=== PATIENT | male | born 1980 | race Caucasian/White ===

== ENCOUNTER 2019-06-19 12:55 | Outpatient (CLI) | payer OTHER | END 2019-06-19 12:56 | disposition EMS.NT | LOC: EMS 12:55 | PROVIDERS: ATTEND Surgery | DX: S00.31XA Abrasion of nose, initial encounter (principal); V89.2XXA Person injured in unspecified motor-vehicle accident, traffic, initial encounter; Y92.414 Local residential or business street as the place of occurrence of the external cause ==

== ENCOUNTER 2020-10-11 09:31 | Outpatient (CLI) | payer MEDICAID ==
[2020-10-11 17:54] LABS: CHOL/HDL RATIO 3.3 (<5.0); CHOLESTEROL 164 mg/dL; HDL CHOLESTEROL 50 mg/dL; LDL CHOLESTEROL,CALCULATED 96 mg/dL; LDL/HDL RATIO 1.9 (<3.6); TRIGLYCERIDES 90 mg/dL; VLDL CHOLESTEROL 18 mg/dL
== END 2020-10-11 09:32 | disposition home or self-care (01) ==
LOC: LAB.N 09:31
PROVIDERS: ATTEND Physician Assistant
DX: Z00.00 Encounter for general adult medical examination without abnormal findings (principal); Z79.899 Other long term (current) drug therapy; F11.11 Opioid abuse, in remission
CPT/HCPCS: 36415; 80061; 83721

== ENCOUNTER 2021-02-28 08:00 | Outpatient (CLI) | payer MEDICAID | END 2021-02-28 23:59 | disposition home or self-care (01) | LOC: LAB 08:00 | PROVIDERS: ATTEND Family Medicine | DX: T14.8XXA Other injury of unspecified body region, initial encounter (principal) | CPT/HCPCS: 87070; 87181; 87205 ==

== ENCOUNTER 2022-10-11 09:27 | Emergency (ER) | payer MEDICAID ==
[2022-10-11 09:48] VITALS: BP 142/97
--- NOTE | 2022-10-11 09:56 | ED Physician Documentation ---
History of Present Illness - Stated complaint Stated Complaint: LFT FING INJ - Chief complaint Chief Complaint: Laceration - Additonal information Additional information: Patient 41-year-old male, [id number] presenting with left fourth finger injury. Clipped the nail and distal part of his left fourth finger with pus immediately prior to arrival. Denies previous injuries to the same hand. Reports tetanus up-to-date. Review of Systems Constitutional: denies: Fever Eyes: denies: Loss of vision Ears: denies: Loss of hearing Nose: denies: Rhinorrhea / runny nose Throat: denies: Dental pain / toothache Respiratory: denies: Dyspnea GI: denies: Abdominal Pain, Nausea, Vomiting PD PAST MEDICAL HISTORY - Present Medications Home Medications: Ambulatory Orders Medication Instructions Recorded Confirmed Ibuprofen [Motrin] 800 mg PO Q8H PRN #30 tablet 10/11/22 cephALEXin [Keflex] 500 mg PO Q6H #20 cap 10/11/22 - Allergies Allergies/Adverse Reactions: Allergies Allergy/AdvReac Type Severity Reaction Status Date / Time No Known Drug Allergies Allergy Verified 10/11/22 09:44 PD ED PE NORMAL - Vitals Vital signs reviewed: Yes (Tachycardic) - General General: Alert and oriented X 3 - HEENT HEENT: Atraumatic - Extremities Extremities: Other (Linear laceration involving the pad and superior aspect of the left fifth distal phalanx.Flexor superficialis and profundus intact. Full range with extension. Sensation grossly intact.) Results - Vitals Vitals: Oxygen O2 Source Room air Procedures - Laceration (location) Finger left Length in cm: 1.5 Wound type: Linear, Exposure of bone Neurovascular status: Sensory intact, Motor intact, Vascular intact Tendon involvement: Tendon intact Anesthesia: Lidocaine 1% Wound preparation: Chlorhexadine Skin layer closure: Nylon (4.0), Sutures - enter # (8) Other: Patient tolerated well PD Medical Decision Making - ED course Complexity details: reviewed results, re-evaluated patient, considered differential, d/w patient ED course: Patient is a 41-year-old male presenting to the emergency department with injury to his left fourth finger. This occurred while he was using a band saw without protective work gloves earlier today. X-ray demonstrates distal tuft fracture. He was given 2 g Ancef for antibiotic prophylaxis. Received a digital block here in the emergency department after neurovascular status was confirmed. No indications tendon injury. Wound was extensively cleaned. For antibiotic prophylaxis. Received a digital block here in the emergency department after neurovascular status was confirmed. No indications tendon injury. Wound was extensively cleaned. Nail was removed with retention of nailbed as much is as possible and a loose primary closure was placed. Discharged with medication for pain control as well as an ongoing course of oral antibiotic and referral to local area hand services. Encouraged careful follow-up and return to the emergency department for new or worsening symptoms. Departure - Departure Disposition: 01 Home, Self Care Clinical Impression: Open fracture of tuft of distal phalanx of finger Instructions: ED Fx Finger Open Follow-Up: Isiah Leblanc MD [Physician No Access] - Prescriptions: cephALEXin [Keflex] 500 mg PO Q6H #20 cap Ibuprofen [Motrin] 800 mg PO Q8H PRN #30 tablet PRN Reason: PAIN &/OR FEVER Comments: Thank you for allowing us to care for you today at [facility]. Today in the emergency department you were diagnosed with an open tuft fracture of your left fourth finger. You are given a dose of IV antibiotics here in the emergency department. I will be discharging with a course of oral antibiotics to take as well. You also received 9 stitches to this injury. The stitches will need to be removed in 7 to 10 days. I do recommend careful follow-up with a hand specialist. As we discussed have included contact information for Dr. Obey Leblanc, an orthopedic surgeon who specializes in hand and practices in [place]. Please call her office later today in order to arrange follow-up. If there are difficulties arranging follow-up I do recommend contacting your primary care doctor to ask for referral. In addition there is a hand clinic available at [facility] which can be reached at [phone] Please continue take your previously prescribed Vicodin for pain control. I also recommend regular use of ibuprofen, ice packs and elevation of your injured extremity to decrease swelling and thereby decrease pain. If it anytime you have new or worsening symptoms please not hesitate to return. Discharge Date/Time: 10/11/22 13:01
[2022-10-11] MEDS ORDERED: lidocaine 1% 20 ML MDV SUBQ ONE (10:04)
--- NOTE | 2022-10-11 10:12 | XRAY Report ---
PROCEDURE: Finger(s) LT INDICATIONS: left 4th finger laceration TECHNIQUE: AP hand, 2 views of the fourth finger(s) acquired. COMPARISON: None. FINDINGS: Bones: There is mild fragmentation of the fourth distal phalanx tuft. Soft tissues: No suspicious soft tissue calcifications or masses. Soft tissue defect to the dorsal , distal fourth phalanx. IMPRESSION: Mild fragmentation of the fourth distal phalanx tuft, with associated soft tissue defect. Reviewed by: Mejia Moran on 10/11/2022 10:10 AM PDT Approved by: Mejia Moran on 10/11/2022 10:10 AM PDT Station ID: [id number]
[2022-10-11] MEDS ORDERED: AMPICILLIN IV STA (10:32)
[2022-10-11] MEDS ORDERED: SULBACTAM IV STA (10:32)
[2022-10-11] MEDS ORDERED: SODIUM CHLORIDE 0.9% IV STA (10:32)
[2022-10-11] MEDS ORDERED: AMPICILLIN/SULBACTAM 3 GM in SODIUM CHLORIDE 0.9% MINIBAG 100 ML IV STA (10:38)
[2022-10-11] MEDS ORDERED: ceFAZolin 2 GM in SODIUM CHLORIDE 0.9% MINIBAG 100 ML IV STA (10:45)
[2022-10-11] MEDS ORDERED: BACITRACIN ZINC OINT 1 PACKET TOP STA (12:14)
== END 2022-10-11 13:01 | disposition home or self-care (01) ==
LOC: ED 09:27
DX: S62.635B Displaced fracture of distal phalanx of left ring finger, initial encounter for open fracture (principal); X58.XXXA Exposure to other specified factors, initial encounter
CPT/HCPCS: 13131

== ENCOUNTER 2023-05-16 21:19 | Outpatient (CLI) | payer MEDICAID | END 2023-05-16 23:59 | disposition critical access hospital (66) | LOC: EMS 21:19 | DX: R56.9 Unspecified convulsions (principal); F10.10 Alcohol abuse, uncomplicated | CPT/HCPCS: A0425; A0429; A0999 ==

== ENCOUNTER 2023-05-16 21:40 | Inpatient (IN) | payer OTHER, MEDICAID ==
[2023-05-16] MEDS ORDERED: THIAMINE INJ 100 MG, MAGNESIUM SULFATE 2 GM, MULTIVITAMIN 10 ML, FOLIC ACID INJ 1 MG in... IV STA ×5 (22:30)
[2023-05-16] MEDS ORDERED: LORazepam 2 MG/ML VIAL IVP STA ×2 (22:30→22:44)
--- NOTE | 2023-05-16 22:32 | ED Physician Documentation ---
History of Present Illness - Stated complaint Stated Complaint: SZ, ETOH - Chief complaint Chief Complaint: Neuro - History obtained from History obtained from: Patient, EMS - History of Present Illness Timing: Today Pain level max: 0 Pain level now: 0 - Additonal information Additional information: Patient is a 42-year-old male history of alcoholism who presents to the emergency department stating he normally drinks about 1/5 of vodka per day. He has been trying to cut back to half of 1/5 of vodka per day. Last drink was about 4 hours prior to arrival. Reportedly had a 15 to 20-second seizure at home. He did fall and strike his head. Witnessed by his . He states he has never had a seizure before. He has noticed that his skin and eyes have been turning yellow over the past several weeks. He has a primary care provider at [facility]. He states he has never had jaundice before. No history of varices. Denies any other drug use. No fevers. No chills. No recent travel. Review of Systems Constitutional: denies: Fever, Chills Nose: denies: Rhinorrhea / runny nose, Congestion Throat: denies: Sore throat Cardiac: denies: Chest pain / pressure Respiratory: denies: Cough GI: denies: Nausea, Vomiting, Diarrhea : denies: Dysuria, Frequency, Hesitancy Skin: denies: Rash Musculoskeletal: denies: Neck pain, Back pain Neurologic: reports: Seizure, Head injury. denies: Focal weakness, Numbness, Confused, Altered mental status PD PAST MEDICAL HISTORY - Past Medical History Past Medical History: Yes Other Past Medical History: Peripheral neuropathy - Past Surgical History Past Surgical History: No - Present Medications Home Medications: Ambulatory Orders Medication Instructions Recorded Confirmed Ibuprofen [Motrin] 800 mg PO Q8H PRN #30 tablet 10/11/22 cephALEXin [Keflex] 500 mg PO Q6H #20 cap 10/11/22 - Allergies Allergies/Adverse Reactions: Allergies Allergy/AdvReac Type Severity Reaction Status Date / Time No Known Drug Allergies Allergy Verified 10/11/22 09:44 - Living Situation Living Arrangement: reports: At home - Social History Does the pt drink ETOH?: Yes ETOH Use: Liquor - Family History Family history: reports: Non contributory PD ED PE NORMAL - Vitals Vital signs reviewed: Yes - General General: Alert and oriented X 3, No acute distress, Well developed/nourished, Other (Obviously jaundiced) - HEENT HEENT: PERRL (Positive scleral icterus), EOMI, Moist mucous membranes, Pharynx benign - Neck Neck: Supple, no meningeal sign - Cardiac Cardiac: RRR - Respiratory Respiratory: No respiratory distress, Clear bilaterally - Abdomen Abdomen: Soft, Non tender, Non distended - Back Back: No spinal TTP - Derm Derm: Warm and dry - Extremities Extremities: No edema, No calf tenderness / cord - Neuro Neuro: Alert and oriented X 3 - Psych Psych: Normal mood, Normal affect Results - Vitals Vitals: Vital Signs - 24 hr 05/16/23 21:52 Temperature 36.3 C L Heart Rate 125 H Respiratory 28 H Rate Blood Pressure 143/102 H O2 Saturation 98 Oxygen O2 Source Room air - Labs Labs: Laboratory Tests 05/16/23 05/16/23 05/16/23 22:16 22:16 22:16 WBC 7.4 RBC 3.66 L Hgb 13.8 L Hct 37.5 L MCV 102.5 H MCH 37.7 H MCHC 36.8 H RDW 14.9 Plt Count 107 L MPV 12.2 H Neut # (Auto) 5.8 Lymph # (Auto) 0.7 L [place] # (Auto) 0.8 Eos # (Auto) 0.0 Baso # (Auto) 0.1 Absolute Nucleated RBC 0.03 Nucleated RBC % 0.4 PT 13.2 H INR 1.2 APTT 28.7 Sodium 127 L Potassium 2.7 L Chloride 91 L Carbon Dioxide 18 L Anion Gap 18.0 H BUN 9 Creatinine 0.8 Estimated GFR (MDRD) 106 Glucose 141 H Calcium 9.4 Phosphorus Magnesium Total Bilirubin 21.3 H AST 454 H ALT 147 H Alkaline Phosphatase 273 H Total Protein 6.6 Albumin 3.5 Globulin 3.1 Albumin/Globulin Ratio 1.1 Lipase 471 H Ethyl Alcohol < 10.0 05/16/23 22:16 WBC RBC Hgb Hct MCV MCH MCHC RDW Plt Count MPV Neut # (Auto) Lymph # (Auto) [place] # (Auto) Eos # (Auto) Baso # (Auto) Absolute Nucleated RBC Nucleated RBC % PT INR APTT Sodium Potassium Chloride Carbon Dioxide Anion Gap BUN Creatinine Estimated GFR (MDRD) Glucose Calcium Phosphorus 1.4 L Magnesium 1.8 Total Bilirubin AST ALT Alkaline Phosphatase Total Protein Albumin Globulin Albumin/Globulin Ratio Lipase Ethyl Alcohol PD Medical Decision Making - ED course Complexity details: reviewed results, re-evaluated patient, considered differential, d/w patient ED course: Patient wtih presumed alcohol withdrawal seizure. Given phenobarbital and IV ativan. Banana bag ordered. Abd/pelvis CT and head CT ordered. labs ordered. Patient signed out to Dr. Loco for further care. See his note for further care. Departure - Departure Clinical Impression: Hyponatremia, Hyperbilirubinemia, Seizure Alcohol withdrawal Qualifiers: Complication of substance-induced condition: uncomplicated Qualified Code(s): F10.930 - Alcohol use, unspecified with withdrawal, uncomplicated Condition: Stable Forms: PCP List
[2023-05-16 22:33] LABS: BASOPHILS # (AUTO) 0.1 10^3/uL (0.0-0.1); BASOPHILS % (AUTO) 0.7 %; EOSINOPHILS % (AUTO) 0.1 %; HCT - HEMATOCRIT 37.5 % (42.0-52.0); HGB - HEMOGLOBIN 13.8 g/dL (14.0-18.0); LYMPHOCYTES # (AUTO) 0.7 10^3/uL (1.5-3.5); MEAN CORPUSCULAR HEMOGLOBIN 37.7 pg (27.0-31.0); MEAN CORPUSCULAR HGB CONC 36.8 g/dL (32.0-36.0); MEAN CORPUSCULAR VOLUME 102.5 fL (80.0-94.0); MEAN PLATELET VOLUME 12.2 fL (7.4-11.4); MONOCYTES # (AUTO) 0.8 10^3/uL (0.0-1.0); MONOCYTES % (AUTO) 10.4 %; NEUTROPHILS # (AUTO) 5.8 10^3/uL (1.5-6.6); NEUTROPHILS % (AUTO) 77.6 %; NRBC ABSOLUTE COUNT (AUTO) 0.03 x10^3/uL; NUCLEATED RED BLOOD CELLS AUTO 0.4 /100WBC; PLT - PLATELET COUNT 107 10^3/uL (130-450); RED BLOOD COUNT 3.66 10^6/uL (4.70-6.10); RED CELL DISTRIBUTION WIDTH 14.9 % (12.0-15.0); WHITE BLOOD COUNT 7.4 x10^3/uL (4.8-10.8)
[2023-05-16 22:35] LABS: PARTIAL THROMBOPLASTIN TIME 28.7 secs (24.9-33.3)
[2023-05-16] MEDS ORDERED: oxyCODONE/ACET 5/325 Prepack 4 PO STA (22:38)
[2023-05-16 22:39] LABS: INR 1.2 (0.8-1.2); PT - PROTHROMBIN TIME 13.2 secs (9.9-12.6)
[2023-05-16 22:43] LABS: ALBUMIN 3.5 g/dL (3.2-5.5); ETOH - ETHANOL < 10.0 mg/dL; LIPASE 471 U/L (11-82)
[2023-05-16] MEDS ORDERED: PHENobarbital 65 MG/ML VIAL IM STA (22:44)
[2023-05-16] MEDS ORDERED: iohexoL-300 100 ML VIAL ONE (22:48)
[2023-05-16 22:50] LABS: ALBUMIN/GLOBULIN RATIO 1.1 (1.0-2.2); ALKALINE PHOSPHATASE 273 IU/L (42-121); ALT ALANINE AMINOTRANSFERASE 147 IU/L (10-60); AST ASPARTATE AMINOTRANSFERASE 454 IU/L (10-42); BILIRUBIN,TOTAL 21.3 mg/dL (0.2-1.0); BUN - BLOOD UREA NITROGEN 9 mg/dL (6-20); CALCIUM 9.4 mg/dL (8.5-10.3); CARBON DIOXIDE - CO2 18 mmol/L (21-32); CHLORIDE 91 mmol/L (101-111); CREATININE 0.8 mg/dL (0.6-1.3); GFR - MDRD 106 (>89); GLUCOSE 141 mg/dL (74-104); POTASSIUM 2.7 mmol/L (3.5-4.5); SODIUM 127 mmol/L (135-145); TOTAL PROTEIN 6.6 g/dL (6.4-8.9)
[2023-05-16 22:57] LABS: MAGNESIUM 1.8 mg/dL (1.7-2.3); PHOSPHORUS 1.4 mg/dL (2.5-5.0)
[2023-05-16] MEDS ORDERED: THIAMINE 100 MG/1 ML 2 ML MDV IM ONE (23:00)
[2023-05-16] MEDS ORDERED: FOLIC ACID 5 MG/1 ML 10ML MDV ONE (23:09)
[2023-05-16] MEDS ORDERED: THIAMINE 100 MG/1 ML 2 ML MDV ONE (23:09)
[2023-05-16] MEDS ORDERED: MAGNESIUM SULFATE 1 GM/2 ML VIAL ONE (23:09)
[2023-05-16] MEDS ORDERED: MAGNESIUM SULFATE 2 GRAM 2 GM/50 ML BAG IV ONE (23:19)
[2023-05-16] MEDS ORDERED: SODIUM CHLORIDE 0.9% 1,000 ML IV STA (23:19)
[2023-05-16] MEDS ORDERED: THIAMINE INJ 100 MG, FOLIC ACID INJ 1 MG in SODIUM CHLORIDE 0.9% 1,000 ML IV STA (23:19)
--- NOTE | 2023-05-17 00:37 | CT Report ---
PROCEDURE: Head WO INDICATIONS: fall, head injury TECHNIQUE: Noncontrast 4.5 mm thick angled axial sections acquired from the foramen magnum to the vertex. For r adiation dose reduction, the following was used: automated exposure control, adjustment of mA and/or kV according to patient size. COMPARISON: None. FINDINGS: Image quality: Excellent. CSF spaces: Basal cisterns are patent. No extra-axial fluid collections. Ventricles are normal in size and shape. Brain: No midline shift. No intracranial masses or hemorrhage. [place]-white matter interface is norm al. Skull and face: Calvarium and visualized facial bones are intact, without suspicious lesions. Small sclerotic focus at the left orbital rim. Sinuses: Visualized sinuses and mastoids are clear. IMPRESSION: No acute intracranial pathology. Reviewed by: Robert Salmeron MD on 05/17/2023 12:36 AM [facility] Approved by: Robert Salmeron MD on 05/17/2023 12:36 AM [facility] Station ID: [id number]
[2023-05-17] MEDS ORDERED: LORazepam 2 MG/ML VIAL IVP STA ×2 (00:56→04:47)
[2023-05-17] MEDS ORDERED: iohexoL-300 100 ML VIAL IVP ONE (01:45)
--- NOTE | 2023-05-17 02:16 | CT Report ---
PROCEDURE: Abdomen/Pelvis W INDICATIONS: jaundice CONTRAST: 100 ML OMNI 300 TECHNIQUE: After the administration of intravenous contrast, a CT scan of the abdomen and pelvis was performed. Images were recorded and evaluated at appropriate window settings. Reformats: coronal and sagittal. F or radiation dose reduction, the following was used: automated exposure control, adjustment of mA and /or kV according to patient size. COMPARISON: None. FINDINGS: Image quality: Fair. Lung bases and heart: Unremarkable. Liver: No solid mass. Hepatic steatosis. Measures 25.7 cm in length. Gallbladder and biliary tree: Gallbladder is likely decompressed. No calcified gallstones. No biliary ductal dilatation appreciated. Spleen: No splenomegaly. Pancreas: No pancreatic ductal dilation. No peripancreatic fluid collection. Adrenals: No adrenal nodule. Kidneys and ureters: No hydronephrosis. No renal cystic lesion which requires follow up. No solid mas s. Bowel and peritoneum: No bowel distension. No pathologic free fluid. The appendix is not dilated. No significant diverticulosis. Lymph nodes: No central or retroperitoneal adenopathy. Vessels: No infrarenal aortic aneurysm. Mild noncalcified plaque in the aorta. PELVIS Reproductive organs: Unremarkable. Bladder: No abnormal wall thickening, accounting for underdistention. Pelvic lymph nodes: No pelvic adenopathy by size criteria. Bones: No aggressive osseous abnormality. 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 Small vertebral body osteophyte s. No bridging syndesmophytes. Other: No significant ventral or inguinal hernia. IMPRESSION: 1. No acute inflammatory process is identified. No free fluid. 2. The gallbladder appears decompressed. No biliary ductal dilatation is seen. 3. Hepatic steatosis. Hepatomegaly. 4. 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 Reviewed by: Robert Salmeron MD on 05/17/2023 2:15 AM [facility] Approved by: Robert Salmeron MD on 05/17/2023 2:15 AM PST Station ID: [id number]
--- NOTE | 2023-05-17 02:45 | ED Physician Documentation ---
ED Addendum - Addendum Addendum: 05/17/23 08:26 I received signout/turnover of care from Dr. Martin; please see his note for complete history and physical. In brief, this patient has alcoholism and presents due to seizures which are likely due to alcohol withdrawal. Patient's , in the ED at bedside, says the patient recently was trying to taper his alcohol intake. His says they have also noted that his skin has been turning yellow in his eyes, as well, over the past few days. His says that he has had jaundice skin before, attributed to his alcoholism, but that with tapering the alcohol, he had resolution of the jaundice. Patient apparently had a seizure at home, followed by a seizure shortly after ED arrival. Additionally, while he was undergoing CT scans tonight, he reportedly had 2 more seizures witnessed by the ED RN. On my overnight shift, there was no seizure activity but he did require 2 mg IV lorazepam with a repeat dose due to generalized tremulous that was gradually worsening as previous doses of lorazepam were wearing off. He has significantly abnormal LFTs, most notably significant hyperbilirubinemia. There are no abnormalities on the CT head, and CT of the abdomen pelvis demonstrate hepatomegaly and hepatic steatosis but otherwise no contributory/concerning findings. I discussed this case with Dr. Rojas (on-call GI at [facility]). He recommends methylprednisolone 40mg QD x [address] Rojas says this can be given PO or IV. I have ordered 40mg IV methylprednisolone, given repeated seizures representing an aspiration risk. The methylprednisolone is for borderline Maddrey's score. Using the initial values (PT, control, and bilirubin), score is 31.4 (cutoff for good/bad prognosis and recommendation against/for methylprednisolone is 32). However, AM bilirubin has increased and now the Maddrey score is 32.5. Dr. Rojas says patient would not benefit from transfer at this time; he says there would be no difference in treatment at [facility] compared to transfer to [facility] or other higher level of care. As there are no beds available at [facility] at this time, he is held in the ED and care is signed out to oncoming ED physician (Dr. Daniel) at the end of my shift pending bed availability.
[2023-05-17] MEDS ORDERED: SODIUM CHLORIDE 0.9% 1,000 ML IV STA (02:56)
[2023-05-17] MEDS ORDERED: methylPREDNISolone SUCCINATE 40 MG/ML VIAL IVP STA (05:40)
[2023-05-17] MEDS ORDERED: POTASSIUM PHOSPHATE 21 MMOL in SODIUM CHLORIDE 0.9% 250 ML IV ONE (07:29)
[2023-05-17 08:01] LABS: ALBUMIN 3.2 g/dL (3.2-5.5)
[2023-05-17 08:06] LABS: ALBUMIN/GLOBULIN RATIO 1.3 (1.0-2.2); BILIRUBIN,TOTAL 22.4 mg/dL (0.2-1.0); CALCIUM 8.2 mg/dL (8.5-10.3); CREATININE 0.9 mg/dL (0.6-1.3); POTASSIUM 4.5 mmol/L (3.5-4.5); TOTAL PROTEIN 5.7 g/dL (6.4-8.9)
[2023-05-17 08:23] LABS: BILIRUBIN,URINE LARGE (NEGATIVE); GLUCOSE, URINE (UA) NEGATIVE (NEGATIVE); KETONES,URINE (UA) NEGATIVE (NEGATIVE); LEUKOCYTE ESTERASE, URINE NEGATIVE (NEGATIVE); NITRITE,URINE NEGATIVE (NEGATIVE); OCCULT BLOOD,URINE NEGATIVE (NEGATIVE); PROTEIN,URINE TRACE mg/dL (NEGATIVE); UROBILINOGEN,URINE 4 E.U./dL (NORMAL)
[2023-05-17 08:33] LABS: CLARITY,URINE CLEAR (CLEAR)
[2023-05-17] MEDS ORDERED: PHENobarbital 65 MG/ML VIAL IV STA (10:31)
[2023-05-17] MEDS ORDERED: IBUPROFEN 400 MG TABLET PO PRN (12:08)
--- NOTE | 2023-05-17 13:02 | HISTORY & PHYSICAL EXAMINATION ---
Chief Complaint - Chief Complaint Chief Complaint: Seizure History of Present Illness - Admitted From Admitted From:: Emergency Room - History Obtained From Records Reviewed: Clinic History obtained from: Patient and patient's mother Exam Limitations: None - History of Present Illness HPI Comment/Other: Jim is a 42 year old male with a history of alcoholism who presents to the ED after having a witnessed seizure at home then falling/hitting his head. The seizure lasted ~ 20 seconds. Last drink was 4 hours prior to arrival at ED. Patient drinks about 1/5 vodka a day and he has been trying to cut back the last few days. He has noticed that his skin and eyes have been turning yellow over the past few weeks. Patient's reports patient has had jaundiced skin before due to alcoholism but it resolved with reduction of alcohol consumption. While in the ER, patient had several seizures, two of which were witnssed by ED RN. He had a head CT that showed no acute intracranial pathology. CT of the abd/pelvis showed a decompressed gallbladder, no billiary duct dilation, hepatic stenosis and hepatomegaly, and ankylosis at SI joints. He required 2 mg IV lorazepam for generalized tremulous that increased as the previous dose of lorazepam wore off. orthopedically impaired teacher GI provider Dr. Rojas ([facility]) recommended starting methylprednisolone 40mg QD x 30 days for borderline Maddrey's score and that there was no need for transfer. Initial Maddrey's score was 31.4 (cutoff for recommendation for methylprednisolone is 32). Patient was started on IV methylprednisolone given repeated seizures and aspiration risk. His AM labs show an increase in bilirubin and his Maddrey score is now 32.5. Currently, patient complains of headache and feels overall uncomfortable. He has visible tremors but denies any palpitations, SOB, pain, vision changes, or diaphoresis. He notes he started drinking hard liquor daily about three years ago when he had multiple stressors in his life. 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 He also smokes cigarettes at 1/2-1 pack per day. 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 History - Past Medical History Cardiovascular: reports: None Respiratory: reports: None Neuro: reports: Headaches, Peripheral neuropathy (Bottom of feet) Endocrine/Autoimmune: reports: None GI: reports: Hepatitis : reports: None HEENT: reports: None Psych: reports: Depression, Anxiety Musculoskeletal: reports: Other (ankylosing of SI joint) Derm: reports: None MRSA Hx?: Yes Other Past Medical History: Peripheral neuropathy - Family & Social History Family History: Mother: Alive and Well, Cancer (father: lung cancer age 66, mother: lung cancer ), Father: , Cancer Living arrangement: At home Living Situation: With spouse/s.o., With family Social History Notes: previously worked in construction, not currently working. has 2 cats and a dog. 3 kids - Substance History Use: Uses substance without health or social issues: Tobacco, Alcohol, Amphetamine (completed rehab in 2020 and last reported 19 months clean of heroin) Use Issues: Intoxication Abuse: Recurrent use of substance despite neg consequences: Alcohol Abuse Issues: Intoxication Dependence: Experiences withdrawal or developed tolerances: Alcohol Dependence Issues: Intoxication Tobacco Details: Cigarettes - POLST POLST Status: Full Code Meds/Allgy - Home Medications Home Medications: Ambulatory Orders Medication Instructions Recorded Confirmed Ibuprofen [Motrin] 800 mg PO Q8H PRN #30 tablet 10/11/22 cephALEXin [Keflex] 500 mg PO Q6H #20 cap 10/11/22 - Allergies Allergies/Adverse Reactions: Allergies Allergy/AdvReac Type Severity Reaction Status Date / Time No Known Drug Allergies Allergy Verified 10/11/22 09:44 Review of Systems - Constitutional Constitutional: reports: Fatigue, Poor appetite, Weight loss - Eyes Eyes: denies: Pain, Irritation, Amaurosis, Blurred vision - Ears, Nose & Throat Ears, Nose & Throat: denies: Ear pain, Hearing loss, Hearing aids, Nasal pain, Nasal discharge, Mouth lesions, Dental pain - Cardiovascular Cariovascular: denies: Irregular heart rate, Palpitations, Chest pain, Edema, Lightheadedness, Syncope - Respiratory Respiratory: denies: Cough, Sputum production, Wheezing, Snoring, Hemoptysis, Orthopnea, SOB at rest, SOB with exertion, Apnea, Stridor, Pleuritic pain - Gastrointestinal Gastrointestinal: reports: Constipation, Diarrhea, Poor appetite. denies: Abdominal pain, Abdominal distention, Nausea, Vomiting - Genitourinary Genitourinary: denies: Dysuria, Frequency, Urgency, Hematuria, Incontinence, Flank pain, Nocturia, Urethral discharge - Musculoskeletal Musculoskeletal: reports: Joint pain. denies: Muscle pain, Back pain, Muscle aches, Stiffness - Integumentary Integumentary: reports: Other ( .0). denies: Rash, Pruritis, Lesions, Dryness, Lumps, Acne, Pigment changes - Neurological Neurological: reports: Headache, Seizures. denies: General weakness, Focal weakness, Dizziness, Numbness, Memory problems, Pre-existing deficit, Abnormal gait - Psychiatric Psychiatric: reports: Depression, Anxiety - Endocrine Endocrine: denies: Polyuria, Polydypsia, Polyphagia - Hematologic/Lymphatic Hematologic/Lymphatic: denies: Anemia, Bruising, Petechiae, Blood clots Prior Level of Functionality: No limitations Exam - Vital Signs Reviewed Vital Signs: Yes Vital Signs: Vital Signs x48h Pulse Resp BP Pulse Ox 05/17/23 12:00 95 20 130/100 H 97 05/17/23 11:00 99 20 124/99 H 96 05/17/23 10:00 112 H 20 141/103 H 95 05/17/23 09:00 102 H 20 136/92 H 95 05/17/23 08:00 106 H 22 132/92 H 95 05/17/23 07:00 113 H 30 H 123/89 H 94 05/17/23 06:30 120 H 29 H 138/96 H 94 05/17/23 06:00 118 H 25 H 125/86 H 94 05/17/23 05:30 117 H 25 H 123/87 H 94 - Physical Exam General Appearance: positive: No acute distress, Alert Eyes Bilateral: positive: PERRL, EOMI, Other (scleral icterus present) ENT: positive: No signs of dehydration Neck: positive: Nml inspection, No JVD, Trachea midline Respiratory: positive: Chest non-tender, No respiratory distress, Breath sounds nml Cardiovascular: positive: Regular rate & rhythm, No murmur, No gallop Peripheral Pulses: positive: 2+ Abdomen: positive: Non-tender, Nml bowel sounds, No distention Skin: positive: No rash, Warm, Dry, Other (yellowing of the skin) Extremities: positive: Non-tender, Full ROM, Nml appearance Neurologic/Psychiatric: positive: Oriented x3, Other (tremors) Conclusion/Plan - Problem List (1) Alcoholic hepatitis Conclusion/Plan: Patient was admitted after experiencing a seizure at home and found to have sceleral icteris and jaundice. He admits to drinking one fifth of vodka daily for the past few weeks and chronic alcohol consumption for the last 3 years due to increased persoal stress. CT of the abd/pelvis showed hepatomegaly and hepatic stenosis. Labs: Bili 22.4, AST 420, ALT 130, alk phos 230, lipase 589 on day of admission to the ICU (05/17). His Maddreys score this morning increased from 31.4 at admission to 32.[address] Rojas (GI) was consulted from [facility] who recommended patient start methyprednisolone 40 mg daily for 30 days. He wa started on IV methylprednisolone for aspiration risk. Today, he is alert and oriented and there is low risk for aspiration. He will continue on daily oral methylprednisolone at this time. His MELD Score as of today 05/17 is 19.6% with 24 points. - 40 mg methylprednisolone (day 2) - Consider IV methylprednisolone if patient is lethargic and at risk for aspiration - IV fluids for hydration - Trend labs to assess liver function Qualifiers: Ascites presence: without ascites Qualified Code(s): K70.10 - Alcoholic h epatitis without ascites (2) Seizure Conclusion/Plan: Patient presented to the ER after suffering a witnessed seizure at home. The initial seizure lasted about 20 seconds and patient had at least two more seizures that were witnessed in the ER. He was given 2 doses of phenobarbital and given Ativan in the ER. Patient has not had seizures before and has never experienced alcohol withdrawals. He does not require prophylactic anti-seizure medication at this time. - Phenobarbital if seizures continue - Ativan as needed (3) Alcohol withdrawal Conclusion/Plan: Patient presented to the ER after having a witnessed seizure at home. He reports drinking about one fifth of vodka a day for the past few months. He has been drinking daily for the past 3 years. He has never experienced withdrawal before. We will start him on the CIWA protocol. He is receiving IV fluids and medications to help with sedation. Currently, he is alert, oriented x 3, and calm. He does have slight tremors that he notices happens when he does not have alcohol. - Start CIWA protocol - Continue on IV fluids - Start folate and thiamine supplementation - Start Librium - Ativan as needed Qualifiers: Complication of substance-induced condition: uncomplicated Qualified Code(s): F10.930 - Alcohol use, unspecified with withdrawal, uncomplicated (4) Hyperbilirubinemia Conclusion/Plan: Bilirubin upon admission was 21.3 and increased to 22.4 today (05/17). This is expected given his CT abd/pelvis showed hepatic stenosis with hepatomegaly in the setting of alcoholism. His alk phos is also elevated, at 273 on admission and currently 230. At this point in time, there is no need for treatment. We will continue to trend his bilirubin levels and monitor his alcohol withdrawal. - Trend bilirubin (5) Hyponatremia Conclusion/Plan: Patient was admitted with hyponatremia at 127. He wa given IV fluids and his serum sodium increased to 131 today. This is likely due to dehydration in the setting of alcohol abuse. Patient reprots drinking a fifth of vodka every day for the past few weeks due to increased stress. He will continue on IV fluids at this time. - Trend CMP - Continue on IV fluids (6) Thrombocytopenia Conclusion/Plan: Platelet level at 107 as of 05/16. At this time, he does not require any medical intervention. We will continue to trend his CBC. - Repeat CBC tomorrow (7) Hypokalemia Conclusion/Plan: RESOLVED. Patient was admitted with a potassium 2.7. He was given IV fluids and today, his potassium is at 4.5. This is likely due to dehydration in the setting of alcoholism. Patient is continuing on IV fluids while admitted to the floor. - Trend CMP - Replenish potassium if needed (8) Smoking Conclusion/Plan: Patient smokes 1/2 to 1 pack per day. He is interested in quitting and would like a nicotine patch. - Smoking cessation counseling - Nicotine patch - Lab Results Fish Bones: 05/16/23 22:16 05/17/23 07:40 - Diagnostic Imaging Results Diagnostic Imaging Results: positive: Final report reviewed
--- NOTE | 2023-05-17 13:20 | ED Physician Documentation ---
ED Addendum - Addendum Addendum: 05/17/23 13:16 The patient had been sleepy and sedate having had some lorazepam just prior to my initial evaluation on change of shift. He was oxygenating good and normal blood pressure. Heart rate was slightly elevated at 103. He continue with some IV fluids for hydration. Subsequently did become more awake and conversant. He started having increased heart rate and was a bit sweaty and shaky. Recheck of his CIWA score was now 14 having increased. Initial CIWA scoring last night was 30. He had been controlled well with a combination of phenobarbital and lorazepam. I did give a repeat dose of phenobarbital IV and this improved his symptoms. Given the degree of his withdrawal symptoms along with the acute hepatitis and seizures related to his withdrawal, it does seem appropriate to be treated medically. We initially did not have any beds available until staffing and transferring of the patient from the ICU to the floor which then opened up the space available. I talked with the hospitalist, Dr. Rutherford, who will admit the patient for ongoing care to the ICU. Refer to Dr. Loco note regarding initial presentation and also his discussion with GI, treatment there. Disposition the patient is admitted to the hospital in stable condition. Diagnoses: 1. Alcohol use disorder 2. Alcohol withdrawal delirium with seizures 3. Altered mental status 4. Acute on chronic hepatitis related to alcohol use.
[2023-05-17 16:28] LABS: AMPHETAMINE SCREEN,URINE NEGATIVE (NEGATIVE); BARBITURATE SCREEN,UR POSITIVE (NEGATIVE); BENZODIAZEPINES SCREEN, URINE POSITIVE (NEGATIVE); BUPRENORPHINE SCREEN, URINE NEGATIVE (NEGATIVE); COCAINE SCREEN URINE NEGATIVE (NEGATIVE); METHADONE SCREEN, URINE NEGATIVE (NEGATIVE); METHAMPHETAMINES SCREEN, URINE NEGATIVE (NEGATIVE); OPIATE SCREEN, URINE POSITIVE (NEGATIVE); OXYCODONE SCREEN, URINE NEGATIVE (NEGATIVE); THC CANNABINOID SCREEN, URINE NEGATIVE (NEGATIVE); TRICYCLIC ANTIDEPRESSANT,URINE NEGATIVE (NEGATIVE)
[2023-05-17] MEDS: chlordiazePOXIDE 5 MG CAPSULE PO SCH ×2 (16:39→21:44)
[2023-05-17] MEDS: NICOTINE 7 MG PATCH TOP SCH (16:39)
[2023-05-17] MEDS: PANTOPRAZOLE 40 MG VIAL IVP SCH (16:39)
[2023-05-17] MEDS: LORazepam 2 MG/ML VIAL IVP PRN ×3 (16:40→22:48)
[2023-05-17] MEDS: SODIUM CHLORIDE FLUSH 0.9% 10 ML SYRINGE IVP SCH (16:40)
[2023-05-17] MEDS: PrednisoLONE 15 MG/5 ML SYRUP SYR PO SCH (17:12)
[2023-05-18] MEDS: LORazepam 2 MG/ML VIAL IVP PRN ×12 (01:35→23:46)
[2023-05-18] MEDS: SODIUM CHLORIDE FLUSH 0.9% 10 ML SYRINGE IVP SCH ×3 (01:35→17:06)
[2023-05-18 06:17] LABS: BASOPHILS % (AUTO) 0.1 %; EOSINOPHILS % (AUTO) 0.4 %; HCT - HEMATOCRIT 32.2 % (42.0-52.0); HGB - HEMOGLOBIN 11.7 g/dL (14.0-18.0); LYMPHOCYTES # (AUTO) 0.5 10^3/uL (1.5-3.5); LYMPHOCYTES % (AUTO) 7.8 %; MEAN CORPUSCULAR HEMOGLOBIN 37.4 pg (27.0-31.0); MEAN CORPUSCULAR HGB CONC 36.3 g/dL (32.0-36.0); MEAN CORPUSCULAR VOLUME 102.9 fL (80.0-94.0); MEAN PLATELET VOLUME 12.2 fL (7.4-11.4); MONOCYTES # (AUTO) 0.5 10^3/uL (0.0-1.0); MONOCYTES % (AUTO) 7.5 %; NEUTROPHILS # (AUTO) 5.7 10^3/uL (1.5-6.6); NEUTROPHILS % (AUTO) 83.8 %; NRBC ABSOLUTE COUNT (AUTO) 0.03 x10^3/uL; NUCLEATED RED BLOOD CELLS AUTO 0.4 /100WBC; PLT - PLATELET COUNT 86 10^3/uL (130-450); RED BLOOD COUNT 3.13 10^6/uL (4.70-6.10); RED CELL DISTRIBUTION WIDTH 15.7 % (12.0-15.0); WHITE BLOOD COUNT 6.8 x10^3/uL (4.8-10.8)
[2023-05-18 06:27] LABS: ALBUMIN/GLOBULIN RATIO 1.3 (1.0-2.2); BILIRUBIN,TOTAL 20.9 mg/dL (0.2-1.0); CALCIUM 8.5 mg/dL (8.5-10.3); CREATININE 0.8 mg/dL (0.6-1.3); POTASSIUM 2.9 mmol/L (3.5-4.5); TOTAL PROTEIN 5.4 g/dL (6.4-8.9)
[2023-05-18] MEDS: chlordiazePOXIDE 5 MG CAPSULE PO SCH ×5 (06:33→23:10)
[2023-05-18] MEDS: PANTOPRAZOLE 40 MG VIAL IVP SCH (06:35)
[2023-05-18 06:40] LABS: INR 1.1 (0.8-1.2); PT - PROTHROMBIN TIME 11.7 secs (9.9-12.6)
[2023-05-18 07:58] LABS: MAGNESIUM 2.3 mg/dL (1.7-2.3); PHOSPHORUS 2.3 mg/dL (2.5-5.0)
[2023-05-18] MEDS ORDERED: POTASSIUM CHLORIDE 20 MEQ TABLET PO SCH (09:00)
[2023-05-18] MEDS ORDERED: MULTIVITAMIN 10 ML, THIAMINE INJ 100 MG, FOLIC ACID INJ 1 MG in SODIUM CHLORIDE 0.9% 1,... IV SCH (09:00)
[2023-05-18] MEDS: NEUTRA-PHOS 250 MG TABLET PO SCH ×2 (09:08→11:30)
[2023-05-18] MEDS: POTASSIUM CHLORIDE 20 MEQ TABLET PO SCH ×3 (09:08→16:59)
[2023-05-18] MEDS: NICOTINE 7 MG PATCH TOP SCH (09:08)
[2023-05-18] MEDS: PrednisoLONE 15 MG/5 ML SYRUP SYR PO SCH (09:11)
--- NOTE | 2023-05-18 09:14 | PHARMACY PROGRESS NOTE ---
- Best Possible Medication History Admit Date and Time: 05/17/23 1208 Processed by: Pharmacy Medication History completed: Yes Patient Interview: Completed Secondary Source(s): Pharmacy records, Insurance records As the person ultimately responsible for medication therapy, providers are able to order a medication from an existing home medication list in [facility] via the "Reconcile Routine" prior to Confirmation of that medication by learning support assistant. Such practice is discouraged except when the physician, in their clinical judgment, deems that a medical need exists for a medication without regard to previous use.
[2023-05-18] MEDS: oxyCODONE 5 MG TABLET PO PRN (11:31)
--- NOTE | 2023-05-18 11:39 | PROVIDER PROGRESS NOTE ---
Subjective - Prog Note Date Prog Note Date: 05/18/23 Prog Note Time: 11:38 - Subjective Pt reports feeling: Improved Subjective: Jim is a 42 year old male with a history of alcoholism who presents to the ED after having a witnessed seizure at home then falling/hitting his head. The seizure lasted ~ 20 seconds. Last drink was 4 hours prior to arrival at ED. Patient drinks about 1/5 vodka a day and he has been trying to cut back the last few days. He has noticed that his skin and eyes have been turning yellow over the past few weeks. Patient's reports patient has had jaundiced skin before due to alcoholism but it resolved with reduction of alcohol consumption. While in the ER, patient had several seizures, two of which were witnssed by ED RN. He had a head CT that showed no acute intracranial pathology. CT of the abd/pelvis showed a decompressed gallbladder, no billiary duct dilation, hepatic stenosis and hepatomegaly, and ankylosis at SI joints. He required 2 mg IV lorazepam for generalized tremulous that increased as the previous dose of lorazepam wore off. call center dispatcher GI provider Dr. Rojas ([facility]) recommended starting methylprednisolone 40mg QD x 30 days for borderline Maddrey's score and that there was no need for transfer. Initial Maddrey's score was 31.4 (cutoff for recommendation for methylprednisolone is 32). Patient was started on IV methylprednisolone given repeated seizures and aspiration risk. His AM labs show an increase in bilirubin and his Maddrey score is now 32.5. Currently, patient complains of mild headache, which he attributes to his fall during his initial seizure. He continues to have visible tremors. He did have one visual hallucination in the afternoon (he saw mice running around and chasing cheese in the cupboard). Denies any palpitations, SOB, pain, auditory changes, or diaphoresis. His appetite is intact and he has had two bowel movements so far today. Maddrey score has improved to 16.8. Objective - Vital Signs/Intake & Output Vital Signs: Vital Signs x48h Temp Pulse Resp BP Pulse Ox 05/18/23 11:00 93 20 119/88 H 93 05/18/23 10:00 89 27 H 111/86 H 95 05/18/23 09:00 102 H 26 H 123/91 H 98 05/18/23 08:00 36.3 C L 93 28 H 108/78 97 05/18/23 07:00 72 31 H 98/66 95 05/18/23 06:00 81 36 H 110/80 94 05/18/23 05:00 37.2 C 86 36 H 108/84 H 93 05/18/23 04:00 88 27 H 112/77 93 Intake & Output: Intake & Output 05/15/23 05/16/23 05/17/23 05/18/23 23:59 23:59 23:59 23:59 Intake Total 4032.2 960 Output Total 2100 1200 Balance 1932.2 -240 - Objective General Appearance: positive: No acute distress, Alert Eyes Bilateral: positive: PERRL, EOMI, Other (bilateral scleral icterus) ENT: positive: No signs of dehydration Neck: positive: Nml inspection, No JVD, Trachea midline Respiratory: positive: Chest non-tender, No respiratory distress, Breath sounds nml Cardiovascular: positive: Regular rate & rhythm, No murmur, No gallop Abdomen: positive: Nml bowel sounds, Hepatomegaly, Other (mildly firm abdomen) Back: positive: Nml inspection Skin: positive: No rash, Warm, Dry, Other (jaundice) Extremities: positive: Non-tender, Full ROM, Nml appearance Neurologic/Psychiatric: positive: Oriented x3, Other (visual hallucinations (patient saw mice running around chasing cheese in the cabinets)) - Lab Results Fish Bones: 05/18/23 05:11 05/18/23 05:11 Other Labs: Lab Results x24hrs 05/18/23 05/18/23 05/18/23 Range/Units 05:11 05:11 05:11 WBC (4.8-10.8) x10^3/uL RBC (4.70-6.10) 10^6/uL Hgb (14.0-18.0) g/dL Hct (42.0-52.0) % MCV (80.0-94.0) fL MCH (27.0-31.0) pg MCHC (32.0-36.0) g/dL RDW (12.0-15.0) % Plt Count (130-450) 10^3/uL MPV (7.4-11.4) fL Neut # (Auto) (1.5-6.6) 10^3/uL Lymph # (Auto) (1.5-3.5) 10^3/uL [place] # (Auto) (0.0-1.0) 10^3/uL Eos # (Auto) (0.0-0.7) 10^3/uL Baso # (Auto) (0.0-0.1) 10^3/uL Absolute Nucleated RBC x10^3/uL Nucleated RBC % /100WBC PT 11.7 (9.9-12.6) secs INR 1.1 (0.8-1.2) Sodium 133 L (135-145) mmol/L Potassium 2.9 L (3.5-4.5) mmol/L Chloride 95 L (101-111) mmol/L Carbon Dioxide 27 (21-32) mmol/L Anion Gap 11.0 (6-13) BUN 7 (6-20) mg/dL Creatinine 0.8 (0.6-1.3) mg/dL Estimated GFR (MDRD) 106 (>89) Glucose 120 H (74-104) mg/dL Calcium 8.5 (8.5-10.3) mg/dL Phosphorus 2.3 L (2.5-5.0) mg/dL Magnesium 2.3 (1.7-2.3) mg/dL Total Bilirubin 20.9 H (0.2-1.0) mg/dL AST 353 H (10-42) IU/L ALT 123 H (10-60) IU/L Alkaline Phosphatase 209 H (42-121) IU/L Total Protein 5.4 L (6.4-8.9) g/dL Albumin 3.0 L (3.2-5.5) g/dL Globulin 2.4 (2.1-4.2) g/dL Albumin/Globulin Ratio 1.3 (1.0-2.2) Nasal Screen MRSA (PCR) (NEGATIVE) Urine Opiates Screen (NEGATIVE) Ur Buprenorphine Scrn (NEGATIVE) Ur Oxycodone Screen (NEGATIVE) Urine Methadone Screen (NEGATIVE) Ur Barbiturates Screen (NEGATIVE) Ur Tricyclics Screen (NEGATIVE) Ur Phencyclidine Scrn (NEGATIVE) Ur Amphetamine Screen (NEGATIVE) U Methamphetamines Scrn (NEGATIVE) U Benzodiazepines Scrn (NEGATIVE) Urine Cocaine Screen (NEGATIVE) U Cannabinoids Screen (NEGATIVE) Ur Drug Screen Comment 05/18/23 05/17/23 05/17/23 Range/Units 05:11 14:30 06:34 WBC 6.8 (4.8-10.8) x10^3/uL RBC 3.13 L (4.70-6.10) 10^6/uL Hgb 11.7 L (14.0-18.0) g/dL Hct 32.2 L (42.0-52.0) % MCV 102.9 H (80.0-94.0) fL MCH 37.4 H (27.0-31.0) pg MCHC 36.3 H (32.0-36.0) g/dL RDW 15.7 H (12.0-15.0) % Plt Count 86 L (130-450) 10^3/uL MPV 12.2 H (7.4-11.4) fL Neut # (Auto) 5.7 (1.5-6.6) 10^3/uL Lymph # (Auto) 0.5 L (1.5-3.5) 10^3/uL [place] # (Auto) 0.5 (0.0-1.0) 10^3/uL Eos # (Auto) 0.0 (0.0-0.7) 10^3/uL Baso # (Auto) 0.0 (0.0-0.1) 10^3/uL Absolute Nucleated RBC 0.03 x10^3/uL Nucleated RBC % 0.4 /100WBC PT (9.9-12.6) secs INR (0.8-1.2) Sodium (135-145) mmol/L Potassium (3.5-4.5) mmol/L Chloride (101-111) mmol/L Carbon Dioxide (21-32) mmol/L Anion Gap (6-13) BUN (6-20) mg/dL Creatinine (0.6-1.3) mg/dL Estimated GFR (MDRD) (>89) Glucose (74-104) mg/dL Calcium (8.5-10.3) mg/dL Phosphorus (2.5-5.0) mg/dL Magnesium (1.7-2.3) mg/dL Total Bilirubin (0.2-1.0) mg/dL AST (10-42) IU/L ALT (10-60) IU/L Alkaline Phosphatase (42-121) IU/L Total Protein (6.4-8.9) g/dL Albumin (3.2-5.5) g/dL Globulin (2.1-4.2) g/dL Albumin/Globulin Ratio (1.0-2.2) Nasal Screen MRSA (PCR) NEGATIVE (NEGATIVE) Urine Opiates Screen POSITIVE H (NEGATIVE) Ur Buprenorphine Scrn NEGATIVE (NEGATIVE) Ur Oxycodone Screen NEGATIVE (NEGATIVE) Urine Methadone Screen NEGATIVE (NEGATIVE) Ur Barbiturates Screen POSITIVE H (NEGATIVE) Ur Tricyclics Screen NEGATIVE (NEGATIVE) Ur Phencyclidine Scrn NEGATIVE (NEGATIVE) Ur Amphetamine Screen NEGATIVE (NEGATIVE) U Methamphetamines Scrn NEGATIVE (NEGATIVE) U Benzodiazepines Scrn POSITIVE H (NEGATIVE) Urine Cocaine Screen NEGATIVE (NEGATIVE) U Cannabinoids Screen NEGATIVE (NEGATIVE) Ur Drug Screen Comment CUTOFF CONC BELOW: ABX Reporting Has patient been on IV antibiotics over the past 48 hours?: No Assessment/Plan - Problem List (1) Alcoholic hepatitis Impression: Patient was admitted after experiencing a seizure at home and found to have sceleral icteris and jaundice. He admits to drinking one fifth of vodka daily for the past few weeks and chronic alcohol consumption for the last 3 years due to increased persoal stress. CT of the abd/pelvis showed hepatomegaly and hepatic stenosis. Labs: Bili 22.4, AST 420, ALT 130, alk phos 230, lipase 589 on day of admission to the ICU (05/17). His Maddreys score this morning increased from 31.4 at admission to 32.[address] Rojas (GI) was consulted from [facility] who recommended patient start methyprednisolone 40 mg daily for 30 days. He was started on IV methylprednisolone for aspiration risk. Today, he is alert and oriented and there is low risk for aspiration. He will continue on daily oral m ethylprednisolone at this time. His MELD Score as of today 05/18 is 19.6% with 22 points. Maddrey score: 16.8. We recommended that he follow up with GI hepatology post discharge. - 40 mg methylprednisolone (day 3m) - Consider IV methylprednisolone if patient is lethargic and at risk for aspiration - IV fluids for hydration - Trend labs to assess liver function Qualifiers: Ascites presence: without ascites Qualified Code(s): K70.10 - Alcoholic hepatitis without ascites (2) Alcohol withdrawal Impression: Patient presented to the ER after having a witnessed seizure at home. He reports drinking about one fifth of vodka a day for the past few months. He has been drinking daily for the past 3 years. He has never experienced withdrawal before. We will start him on the CIWA protocol. He is receiving IV fluids and medications to help with sedation. Currently, he is alert, oriented x 3, and prachi m. He does have slight tremors and had one visual hallucination so far. - Continue CIWA protocol - Continue on IV fluids - Start folate and thiamine supplementation - Increase Librium to 20 mg TID - Ativan as needed Qualifiers: Complication of substance-induced condition: uncomplicated Qualified Code(s): F10.930 - Alcohol use, unspecified with withdrawal, uncomplicated (3) Seizure Impression: Patient presented to the ER after suffering a witnessed seizure at home. The initial seizure lasted about 20 seconds and patient had at least two more seizures that were witnessed in the ER. He was given 2 doses of phenobarbital and given Ativan in the ER. Patient has not had seizures before and has never experienced alcohol withdrawals. He does not require prophylactic anti-seizure medication at this time. - Phenobarbital if seizures continue - Ativan as needed (4) Hyperbilirubinemia Impression: Bilirubin upon admission was 21.3 and increased to 22.4 when admitted to the floor. This is expected given his CT abd/pelvis showed hepatic stenosis with h epatomegaly in the setting of alcoholism. His alk phos is also elevated, at 273 on admission and currently 269. At this point in time, there is no need for treatment. We will continue to trend his bilirubin levels and monitor his alcohol withdrawal. Today, it is down to 20.9. - Trend bilirubin (5) Hyponatremia Impression: Patient was admitted with hyponatremia at 127. He wa given IV fluids and his serum sodium increased to 1333 today. This is likely due to dehydration in the setting of alcohol abuse. Patient reprots drinking a fifth of vodka every day for the past few weeks due to increased stress. He will continue on IV fluids at this time. - Trend CMP - Continue on IV fluids (6) Thrombocytopenia Impression: Platelet level at 107 as of 05/16. At this time, he does not require any medical intervention. We will continue to trend his CBC. - Repeat CBC tomorrow (7) Hypokalemia Impression: Patient was admitted with a potassium 2.7 and was 4.5 when admitted to the floor. Today (05/18) his potassium dropped to 2.9 and is requiring supplementation. This is likely due to dehydration in the setting of alcoholism. Patient will receive oral potassium supplementation. - Trend CMP - PO potassium 40 mg BID (8) Smoking Impression: Patient smokes 1/2 to 1 pack per day. He is interested in quitting and would like a nicotine patch. - Smoking cessation counseling - Nicotine patch
[2023-05-18] MEDS: PRENATAL VITAMIN TABLET PO SCH (14:03)
[2023-05-18] MEDS ORDERED: PHENobarbital 65 MG/ML VIAL IV ONE (16:46)
[2023-05-18] MEDS: DEXMEDETOMIDINE 400 MCG/100 ML 100 ML IV PRN ×2 (18:15→23:08)
[2023-05-19] MEDS: SODIUM CHLORIDE FLUSH 0.9% 10 ML SYRINGE IVP SCH ×3 (01:18→17:15)
[2023-05-19] MEDS: LORazepam 2 MG/ML VIAL IVP PRN ×6 (01:18→17:15)
[2023-05-19] MEDS: DEXMEDETOMIDINE 400 MCG/100 ML 100 ML IV PRN ×3 (02:51→12:24)
[2023-05-19 05:37] LABS: BASOPHILS % (AUTO) 0.1 %; EOSINOPHILS % (AUTO) 0.4 %; HCT - HEMATOCRIT 36.4 % (42.0-52.0); HGB - HEMOGLOBIN 12.5 g/dL (14.0-18.0); LYMPHOCYTES # (AUTO) 1.4 10^3/uL (1.5-3.5); LYMPHOCYTES % (AUTO) 17.8 %; MEAN CORPUSCULAR HGB CONC 34.3 g/dL (32.0-36.0); MEAN CORPUSCULAR VOLUME 107.7 fL (80.0-94.0); MEAN PLATELET VOLUME 12.3 fL (7.4-11.4); MONOCYTES # (AUTO) 0.6 10^3/uL (0.0-1.0); NEUTROPHILS # (AUTO) 5.6 10^3/uL (1.5-6.6); NEUTROPHILS % (AUTO) 72.8 %; NRBC ABSOLUTE COUNT (AUTO) 0.03 x10^3/uL; NUCLEATED RED BLOOD CELLS AUTO 0.4 /100WBC; PLT - PLATELET COUNT 132 10^3/uL (130-450); RED BLOOD COUNT 3.38 10^6/uL (4.70-6.10); RED CELL DISTRIBUTION WIDTH 15.8 % (12.0-15.0); WHITE BLOOD COUNT 7.7 x10^3/uL (4.8-10.8)
[2023-05-19 05:39] LABS: INR 1.1 (0.8-1.2); PT - PROTHROMBIN TIME 12.3 secs (9.9-12.6)
[2023-05-19 06:00] LABS: ALBUMIN 3.1 g/dL (3.2-5.5)
[2023-05-19 06:02] LABS: ALBUMIN/GLOBULIN RATIO 1.2 (1.0-2.2); BILIRUBIN,TOTAL 23.1 mg/dL (0.2-1.0); CREATININE 0.8 mg/dL (0.6-1.3); POTASSIUM 3.2 mmol/L (3.5-4.5); TOTAL PROTEIN 5.6 g/dL (6.4-8.9)
[2023-05-19] MEDS: PANTOPRAZOLE 40 MG VIAL IVP SCH (06:35)
[2023-05-19] MEDS: chlordiazePOXIDE 5 MG CAPSULE PO SCH ×3 (07:20→22:04)
--- NOTE | 2023-05-19 07:27 | PROVIDER PROGRESS NOTE ---
Subjective - Prog Note Date Prog Note Date: 05/19/23 Prog Note Time: 07:24 - Subjective Pt reports feeling: No change Subjective: Jim is a 42 year old male with a history of alcoholism who presents to the ED after having a witnessed seizure at home then falling/hitting his head. The seizure lasted ~ 20 seconds. Last drink was 4 hours prior to arrival at ED. Patient drinks about 1/5 vodka a day and he has been trying to cut back the last few days. He has noticed that his skin and eyes have been turning yellow over the past few weeks. Patient's reports patient has had jaundiced skin before due to alcoholism but it resolved with reduction of alcohol consumption. While in the ER, patient had several seizures, two of which were witnssed by ED RN. He had a head CT that showed no acute intracranial pathology. CT of the abd/pelvis showed a decompressed gallbladder, no billiary duct dilation, hepatic stenosis and hepatomegaly, and ankylosis at SI joints. He required 2 mg IV lorazepam for generalized tremulous that increased as the previous dose of lorazepam wore off. call center specialist GI provider Dr. Rojas ([facility]) recommended starting methylprednisolone 40mg QD x 30 days for borderline Maddrey's score and that there was no need for transfer. Initial Maddrey's score was 31.4 (cutoff for recommendation for methylprednisolone is 32). Patient was started on IV methylprednisolone given repeated seizures and aspiration risk. His AM labs show an increase in bilirubin and his Maddrey score is now 32.5. 05/18: Maddrey score improved to 16.8. MELD score improved to 19.6% (22 points). Escalation of alcohol withdrawal, requiring an increase in Ativan from 2 mg from 1 mg, starting Precedex, and an additional dose of phenobarbital. Patient reports seeing visual hallucinations and becoming increasingly agitated and belligerent. Patient required nonviolent restraints as he tried to get out of bed, pulled at his IVs, and swinging at the nurse. Currently, patient is sedated and unable to contribute to the assessment. at bedside. MELD score improved to 6% (19 points), Maddrey score 21.7 Objective - Vital Signs/Intake & Output Vital Signs: Vital Signs x48h Temp Pulse Resp BP Pulse Ox 05/19/23 07:00 76 35 H 116/93 H 97 05/19/23 06:00 81 28 H 117/89 H 97 05/19/23 05:00 37.3 C 75 36 H 121/96 H 99 05/19/23 04:00 77 36 H 125/96 H 98 05/19/23 03:00 74 36 H 134/96 H 99 05/19/23 02:00 75 33 H 130/102 H 97 05/19/23 01:00 72 32 H 141/97 H 98 05/19/23 00:00 72 31 H 132/95 H 96 Intake & Output: Intake & Output 05/16/23 05/17/23 05/18/23 05/19/23 23:59 23:59 23:59 23:59 Intake Total 4032.2 3247.199 175.741 Output Total 2100 2850 550 Balance 1932.2 397.199 -374.259 - Objective General Appearance: positive: No acute distress, Other (sedated) Eyes Bilateral: positive: Other (cannot assess for scleral icterus) ENT: positive: No signs of dehydration Neck: positive: No JVD, Trachea midline Respiratory: positive: No respiratory distress, Breath sounds nml Cardiovascular: positive: Regular rate & rhythm, No murmur, No gallop Abdomen: positive: Hepatomegaly Skin: positive: No rash, Warm, Dry, Other (jaundice) Extremities: positive: Nml appearance Neurologic/Psychiatric: positive: Other (sedated, unable to assess) - Lab Results Fish Bones: 05/19/23 05:15 05/19/23 05:15 Other Labs: Lab Results x24hrs 05/19/23 05/19/23 05/19/23 Range/Units 05:15 05:15 05:15 WBC 7.7 (4.8-10.8) x10^3/uL RBC 3.38 L (4.70-6.10) 10^6/uL Hgb 12.5 L (14.0-18.0) g/dL Hct 36.4 L (42.0-52.0) % MCV 107.7 H (80.0-94.0) fL MCH 37.0 H (27.0-31.0) pg MCHC 34.3 (32.0-36.0) g/dL RDW 15.8 H (12.0-15.0) % Plt Count 132 (130-450) 10^3/uL MPV 12.3 H (7.4-11.4) fL Neut # (Auto) 5.6 (1.5-6.6) 10^3/uL Lymph # (Auto) 1.4 L (1.5-3.5) 10^3/uL [place] # (Auto) 0.6 (0.0-1.0) 10^3/uL Eos # (Auto) 0.0 (0.0-0.7) 10^3/uL Baso # (Auto) 0.0 (0.0-0.1) 10^3/uL Absolute Nucleated RBC 0.03 x10^3/uL Nucleated RBC % 0.4 /100WBC PT 12.3 (9.9-12.6) secs INR 1.1 (0.8-1.2) Sodium 138 (135-145) mmol/L Potassium 3.2 L (3.5-4.5) mmol/L Chloride 103 (101-111) mmol/L Carbon Dioxide 26 (21-32) mmol/L Anion Gap 9.0 (6-13) BUN 8 (6-20) mg/dL Creatinine 0.8 (0.6-1.3) mg/dL Estimated GFR (MDRD) 106 (>89) Glucose 93 (74-104) mg/dL Calcium 9.0 (8.5-10.3) mg/dL Phosphorus (2.5-5.0) mg/dL Magnesium (1.7-2.3) mg/dL Total Bilirubin 23.1 H (0.2-1.0) mg/dL AST 315 H (10-42) IU/L ALT 126 H (10-60) IU/L Alkaline Phosphatase 221 H (42-121) IU/L Total Protein 5.6 L (6.4-8.9) g/dL Albumin 3.1 L (3.2-5.5) g/dL Globulin 2.5 (2.1-4.2) g/dL Albumin/Globulin Ratio 1.2 (1.0-2.2) 05/18/23 Range/Units 05:11 WBC (4.8-10.8) x10^3/uL RBC (4.70-6.10) 10^6/uL Hgb (14.0-18.0) g/dL Hct (42.0-52.0) % MCV (80.0-94.0) fL MCH (27.0-31.0) pg MCHC (32.0-36.0) g/dL RDW (12.0-15.0) % Plt Count (130-450) 10^3/uL MPV (7.4-11.4) fL Neut # (Auto) (1.5-6.6) 10^3/uL Lymph # (Auto) (1.5-3.5) 10^3/uL [place] # (Auto) (0.0-1.0) 10^3/uL Eos # (Auto) (0.0-0.7) 10^3/uL Baso # (Auto) (0.0-0.1) 10^3/uL Absolute Nucleated RBC x10^3/uL Nucleated RBC % /100WBC PT (9.9-12.6) secs INR (0.8-1.2) Sodium (135-145) mmol/L Potassium (3.5-4.5) mmol/L Chloride (101-111) mmol/L Carbon Dioxide (21-32) mmol/L Anion Gap (6-13) BUN (6-20) mg/dL Creatinine (0.6-1.3) mg/dL Estimated GFR (MDRD) (>89) Glucose (74-104) mg/dL Calcium (8.5-10.3) mg/dL Phosphorus 2.3 L (2.5-5.0) mg/dL Magnesium 2.3 (1.7-2.3) mg/dL Total Bilirubin (0.2-1.0) mg/dL AST (10-42) IU/L ALT (10-60) IU/L Alkaline Phosphatase (42-121) IU/L Total Protein (6.4-8.9) g/dL Albumin (3.2-5.5) g/dL Globulin (2.1-4.2) g/dL Albumin/Globulin Ratio (1.0-2.2) ABX Reporting Has patient been on IV antibiotics over the past 48 hours?: No Assessment/Plan - Problem List (1) Alcohol withdrawal Impression: Patient presented to the ER after having a witnessed seizure at home. He reports drinking about one fifth of vodka a day for the past few months. He has been drinking daily for the past 3 years. He has never experienced withdrawal before. We will start him on the CIWA protocol. He is receiving IV fluids and medications to help with sedation. Currently, he is sedated and unable to participate in an assessment. Patient was put in nonviolent restraints last night due to increased agitation and being belligerent with nurses/. He refused his Librium last night. He is no longer in restraints at this time. - Continue CIWA protocol - Continue on IV fluids - Start folate and thiamine supplementation - Librium to 20 mg TID - Ativan as needed Qualifiers: Complication of substance-induced condition: uncomplicated Qualified Code(s): F10.930 - Alcohol use, unspecified with withdrawal, uncomplicated (2) Alcoholic hepatitis Impression: Patient was admitted after experiencing a seizure at home and found to have sceleral icteris and jaundice. He admits to drinking one fifth of vodka daily for the past few weeks and chronic alcohol consumption for the last 3 years due to increased persoal stress. CT of the abd/pelvis showed hepatomegaly and hepatic stenosis. Labs: Bili 22.4, AST 420, ALT 130, alk phos 230, lipase 589 on day of admission to the ICU (05/17). His Maddreys score this morning increased from 31.4 at admission to 32.[address] Rojas (GI) was consulted from [facility] who recommended patient start methyprednisolone 40 mg daily for 30 days. He was started on IV methylprednisolone for aspiration risk. Today, he is alert and oriented and there is low risk for aspiration. He will continue on daily oral me thylprednisolone at this time. Patient is still jaundiced. His MELD Score as of today 05/19 is 6% with 19 points. Maddrey score: 21.7. We recommended that he follow up with GI hepatology post discharge. - 40 mg methylprednisolone (day 4) - Consider IV methylprednisolone if patient is lethargic and at risk for aspiration - IV fluids for hydration - Trend labs to assess liver function Qualifiers: Ascites presence: without ascites Qualified Code(s): K70.10 - Alcoholic hepatitis without ascites (3) Seizure Impression: Patient presented to the ER after suffering a witnessed seizure at home. The i nitial seizure lasted about 20 seconds and patient had at least two more seizures that were witnessed in the ER. He was given 2 doses of phenobarbital and given Ativan in the ER. Patient has not had seizures before and has never experienced alcohol withdrawals. He does not require prophylactic anti-seizure medication at this time. As of 05/19, he has not had any recurring seizures. - Phenobarbital if seizures continue - Ativan as needed (4) Hyperbilirubinemia Impression: Bilirubin upon admission was 21.3 and increased to 22.4 when admitted to the floor. This is expected given his CT abd/pelvis showed hepatic stenosis with hepatomegaly in the setting of alcoholism. His alk phos is also elevated, at 273 on admission and currently 221. At this point in time, there is no need for treatment. We will continue to trend his bilirubin levels and monitor his alcohol withdrawal. Today (05/19), it is up to 23.1. - Trend bilirubin (5) Hyponatremia Impression: Patient was admitted with hyponatremia at 127. He wa given IV fluids and his serum sodium increased to 138 today. This is likely due to dehydration in the setting of alcohol abuse. Patient reports drinking a fifth of vodka every day for the past few weeks due to increased stress. He will continue on IV fluids at this time. - Trend CMP - Continue on IV fluids (6) Thrombocytopenia Impression: Platelet level at 132 as of 05/09. At this time, he does not require any medical intervention. We will continue to trend his CBC. - Repeat CBC tomorrow (7) Hypokalemia Impression: Patient was admitted with a potassium 2.7 and was 4.5 when admitted to the floor. Today (05/19) his potassium improved 3.2 and is requiring supplementation. This is likely due to dehydration in the setting of alcoholism. Patient will receive oral potassium supplementation as outlined in the ICU protocol. - Trend CMP - ICU potassium supplementation protocol (8) Smoking Impression: Patient smokes 1/2 to 1 pack per day. He is interested in quitting and would like a nicotine patch. - Smoking cessation counseling - Nicotine patch
[2023-05-19 08:08] LABS: CALCIUM, IONIZED 1.16 mmol/L (1.15-1.33); VBG PH 7.5 (7.31-7.41)
[2023-05-19 08:23] LABS: MAGNESIUM 2.1 mg/dL (1.7-2.3); PHOSPHORUS 1.7 mg/dL (2.5-5.0)
[2023-05-19] MEDS ORDERED: SODIUM PHOSPHATE 21 MMOL in SODIUM CHLORIDE 0.9% 250 ML IV SCH (09:00)
[2023-05-19] MEDS ORDERED: MULTIVITAMIN 10 ML, THIAMINE INJ 100 MG, FOLIC ACID INJ 1 MG in SODIUM CHLORIDE 0.9% 1,... IV SCH (11:00)
[2023-05-19] MEDS: POTASSIUM CHLORIDE 20 MEQ TABLET PO SCH ×3 (11:43→17:15)
[2023-05-19] MEDS: POTASSIUM CHLORIDE 20 MEQ/15 ML UDC PO SCH ×2 (11:44→11:50)
[2023-05-19] MEDS: PRENATAL VITAMIN TABLET PO SCH (11:44)
[2023-05-19] MEDS: NICOTINE 7 MG PATCH TOP SCH (11:48)
[2023-05-19] MEDS: PrednisoLONE 15 MG/5 ML SYRUP SYR PO SCH (11:48)
[2023-05-19 18:30] LABS: VBG PH 7.466 (7.31-7.41)
[2023-05-19 18:31] LABS: CALCIUM, IONIZED 1.15 mmol/L (1.15-1.33)
[2023-05-19 18:42] LABS: PHOSPHORUS 2.9 mg/dL (2.5-5.0); POTASSIUM 4.4 mmol/L (3.5-4.5)
[2023-05-19] MEDS: DEXMEDETOMIDINE 400 MCG in SODIUM CHLORIDE 0.9% 100ML 96 ML IV SCH (23:18)
[2023-05-20] MEDS: SODIUM CHLORIDE FLUSH 0.9% 10 ML SYRINGE IVP SCH ×3 (00:08→14:24)
[2023-05-20] MEDS: DEXMEDETOMIDINE 400 MCG in SODIUM CHLORIDE 0.9% 100ML 96 ML IV SCH ×2 (00:50→05:41)
[2023-05-20] MEDS: oxyCODONE 5 MG TABLET PO PRN ×2 (03:04→10:18)
[2023-05-20] MEDS: SODIUM CHLORIDE FLUSH 0.9% 10 ML SYRINGE IVP PRN ×2 (03:16→21:58)
[2023-05-20] MEDS: LORazepam 2 MG/ML VIAL IVP PRN (03:16)
[2023-05-20 05:15] LABS: BASOPHILS % (AUTO) 0.3 %; EOSINOPHILS % (AUTO) 0.3 %; HCT - HEMATOCRIT 39.1 % (42.0-52.0); HGB - HEMOGLOBIN 12.9 g/dL (14.0-18.0); LYMPHOCYTES # (AUTO) 1.2 10^3/uL (1.5-3.5); LYMPHOCYTES % (AUTO) 15.8 %; MEAN CORPUSCULAR HEMOGLOBIN 36.9 pg (27.0-31.0); MEAN CORPUSCULAR VOLUME 111.7 fL (80.0-94.0); MEAN PLATELET VOLUME 12.5 fL (7.4-11.4); MONOCYTES # (AUTO) 0.7 10^3/uL (0.0-1.0); MONOCYTES % (AUTO) 9.3 %; NEUTROPHILS # (AUTO) 5.5 10^3/uL (1.5-6.6); NEUTROPHILS % (AUTO) 72.9 %; NRBC ABSOLUTE COUNT (AUTO) 0.03 x10^3/uL; NUCLEATED RED BLOOD CELLS AUTO 0.4 /100WBC; PLT - PLATELET COUNT 148 10^3/uL (130-450); RED CELL DISTRIBUTION WIDTH 16.6 % (12.0-15.0); WHITE BLOOD COUNT 7.6 x10^3/uL (4.8-10.8)
[2023-05-20 05:17] LABS: CALCIUM, IONIZED 1.17 mmol/L (1.15-1.33); VBG PH 7.424 (7.31-7.41)
[2023-05-20 05:23] LABS: SLIDE REVIEW? Indicated
[2023-05-20 05:31] LABS: INR 1.1 (0.8-1.2); PT - PROTHROMBIN TIME 12.1 secs (9.9-12.6)
[2023-05-20 05:32] LABS: PHOSPHORUS 3.8 mg/dL (2.5-5.0)
[2023-05-20] MEDS: PANTOPRAZOLE 40 MG TABLET PO SCH (06:13)
[2023-05-20] MEDS: chlordiazePOXIDE 5 MG CAPSULE PO SCH ×3 (06:13→21:55)
[2023-05-20 06:18] LABS: BILIRUBIN,TOTAL 25.4 mg/dL (0.2-1.0); CALCIUM 9.2 mg/dL (8.5-10.3); CREATININE 0.9 mg/dL (0.6-1.3); POTASSIUM 4.1 mmol/L (3.5-4.5); TOTAL PROTEIN 6.1 g/dL (6.4-8.9)
[2023-05-20 06:48] LABS: PLATELET ESTIMATE, MANUAL NORMAL (130-450,000) (NORMAL); RBC MORPHOLOGY (MULTIPLE) 2+ MACROCYTOSIS (NORMAL)
[2023-05-20] MEDS: POTASSIUM CHLORIDE 20 MEQ TABLET PO SCH ×3 (09:54→17:27)
[2023-05-20] MEDS: THIAMINE 100 MG TABLET PO SCH (09:54)
[2023-05-20] MEDS: PRENATAL VITAMIN TABLET PO SCH (09:54)
[2023-05-20] MEDS: NICOTINE 7 MG PATCH TOP SCH (09:55)
[2023-05-20] MEDS: PrednisoLONE 15 MG/5 ML SYRUP SYR PO SCH (09:59)
[2023-05-20] MEDS ORDERED: HYDROcod/ACETAM 5/325 MG TABLET PO PRN (13:00)
[2023-05-20] MEDS ORDERED: SUMAtriptan 25 MG TABLET PO PRN (13:10)
--- NOTE | 2023-05-20 13:10 | PROVIDER PROGRESS NOTE ---
Subjective - Subjective Pt reports feeling: Improved (He was able to follow directions, Precedex drip was stopped this a.m. He awoke even more and was cooperative and communicative and his restraints were stopped.) Objective - Vital Signs/Intake & Output Reviewed Vital Signs: Yes Vital Signs: Vital Signs Temp Pulse Resp BP Pulse Ox 05/20/23 12:00 83 24 96/71 94 05/20/23 11:00 74 39 H 92/73 95 05/20/23 10:00 77 21 84/62 L 100 05/20/23 09:52 36.7 C Intake & Output: Intake & Output 05/17/23 05/18/23 05/19/23 05/20/23 23:59 23:59 23:59 23:59 Intake Total 4032.2 3247.199 7742.256 1243.122 Output Total 2100 2850 1725 925 Balance 1932.2 397.199 47.741 710.122 - Objective General Appearance: positive: No acute distress, Alert Eyes Bilateral: positive: EOMI, Other (scleral icterus) ENT: positive: No signs of dehydration Neck: positive: Nml inspection, No JVD Respiratory: positive: No respiratory distress, Breath sounds nml Cardiovascular: positive: Regular rate & rhythm, No murmur Abdomen: positive: Non-tender, Nml bowel sounds, No distention Skin: positive: Warm, Dry, Other (Icteric skin) Extremities: positive: Non-tender, No pedal edema Neurologic/Psychiatric: positive: CN's nml (2-12), Disoriented to time, Other (Has a resting temor. Answers are slow.) - Lab Results Fish Bones: 05/20/23 04:43 05/20/23 04:43 Other Labs: Lab Results x24hrs 05/20/23 05/20/23 05/20/23 Range/Units 04:43 04:43 04:43 WBC (4.8-10.8) x10^3/uL RBC (4.70-6.10) 10^6/uL Hgb (14.0-18.0) g/dL Hct (42.0-52.0) % MCV (80.0-94.0) fL MCH (27.0-31.0) pg MCHC (32.0-36.0) g/dL RDW (12.0-15.0) % Plt Count (130-450) 10^3/uL MPV (7.4-11.4) fL Neut # (Auto) (1.5-6.6) 10^3/uL Lymph # (Auto) (1.5-3.5) 10^3/uL [place] # (Auto) (0.0-1.0) 10^3/uL Eos # (Auto) (0.0-0.7) 10^3/uL Baso # (Auto) (0.0-0.1) 10^3/uL Absolute Nucleated RBC x10^3/uL Nucleated RBC % /100WBC Manual Slide Review Platelet Estimate (NORMAL) RBC Morph Micro Appear (NORMAL) PT 12.1 (9.9-12.6) secs INR 1.1 (0.8-1.2) VBG pH 7.424 H (7.31-7.41) Ionized Calcium 1.17 (1.15-1.33) mmol/L Sodium 134 L (135-145) mmol/L Potassium 4.1 (3.5-4.5) mmol/L Chloride 100 L (101-111) mmol/L Carbon Dioxide 26 (21-32) mmol/L Anion Gap 8.0 (6-13) BUN 9 (6-20) mg/dL Creatinine 0.9 (0.6-1.3) mg/dL Estimated GFR (MDRD) 93 (>89) Glucose 90 (74-104) mg/dL Calcium 9.2 (8.5-10.3) mg/dL Phosphorus 3.8 (2.5-5.0) mg/dL Magnesium 2.0 (1.7-2.3) mg/dL Total Bilirubin 25.4 H (0.2-1.0) mg/dL AST 339 H (10-42) IU/L ALT 142 H (10-60) IU/L Alkaline Phosphatase 204 H (42-121) IU/L Total Protein 6.1 L (6.4-8.9) g/dL Albumin 3.0 L (3.2-5.5) g/dL Globulin 3.1 (2.1-4.2) g/dL Albumin/Globulin Ratio 1.0 (1.0-2.2) 05/20/23 05/19/23 05/19/23 Range/Units 04:43 18:07 18:07 WBC 7.6 (4.8-10.8) x10^3/uL RBC 3.50 L (4.70-6.10) 10^6/uL Hgb 12.9 L (14.0-18.0) g/dL Hct 39.1 L (42.0-52.0) % MCV 111.7 H (80.0-94.0) fL MCH 36.9 H (27.0-31.0) pg MCHC 33.0 (32.0-36.0) g/dL RDW 16.6 H (12.0-15.0) % Plt Count 148 (130-450) 10^3/uL MPV 12.5 H (7.4-11.4) fL Neut # (Auto) 5.5 (1.5-6.6) 10^3/uL Lymph # (Auto) 1.2 L (1.5-3.5) 10^3/uL [place] # (Auto) 0.7 (0.0-1.0) 10^3/uL Eos # (Auto) 0.0 (0.0-0.7) 10^3/uL Baso # (Auto) 0.0 (0.0-0.1) 10^3/uL Absolute Nucleated RBC 0.03 x10^3/uL Nucleated RBC % 0.4 /100WBC Manual Slide Review Indicated Platelet Estimate NORMAL (130-450,000) (NORMAL) RBC Morph Micro Appear 2+ MACROCYTOSIS (NORMAL) PT (9.9-12.6) secs INR (0.8-1.2) VBG pH 7.466 H (7.31-7.41) Ionized Calcium 1.15 (1.15-1.33) mmol/L Sodium (135-145) mmol/L Potassium 4.4 (3.5-4.5) mmol/L Chloride (101-111) mmol/L Carbon Dioxide (21-32) mmol/L Anion Gap (6-13) BUN (6-20) mg/dL Creatinine (0.6-1.3) mg/dL Estimated GFR (MDRD) (>89) Glucose (74-104) mg/dL Calcium (8.5-10.3) mg/dL Phosphorus 2.9 (2.5-5.0) mg/dL Magnesium 2.0 (1.7-2.3) mg/dL Total Bilirubin (0.2-1.0) mg/dL AST (10-42) IU/L ALT (10-60) IU/L Alkaline Phosphatase (42-121) IU/L Total Protein (6.4-8.9) g/dL Albumin (3.2-5.5) g/dL Globulin (2.1-4.2) g/dL Albumin/Globulin Ratio (1.0-2.2) Assessment/Plan - Problem List (1) Alcohol withdrawal Impression: Patient presented to the ER after having a witnessed seizure at home. He reported drinking about one fifth of vodka a day for the past few months. He has been drinking daily for the past 3 years. He has never experienced withdrawal before. He has needed iv Precedex drip in the ICU, for sedation which is off this a.m. and he did not become agitated whe stopped today, as he did yesterday Plan: Continue CIWA protocol and iv Ativan as needed Continue on IV fluids, taper down as he takes a diet more Cont MOV and thiamine supplementation Cont Librium 20 mg TID and will start tapering it tomorrow Remain in ICU today, probable transfer to [facility] tomorrow and get PT/OT evals I updated the at bedside today (2) Seizure Impression: Patient presented to the ER after suffering a witnessed seizure at home. The initial seizure lasted about 20 seconds and patient had at least two more seizures that were witnessed in the ER. He was given 2 doses of phenobarbital and given Ativan in the ER. Patient has not had seizures before and has never experienced alcohol withdrawals. He does not require prophylactic anti-seizure medication at this time. As of 05/19, he has not had any recurring seizures. Plan: Phenobarbital if seizures recur Cont Ativan as needed (3) Alcoholic hepatitis Impression: Patient was admitted after experiencing a seizure at home and found to have sceleral icteris and jaundice. He admits to drinking one fifth of vodka daily for the past few weeks and chronic alcohol consumption for the last 3 years due to increased persoal stress. CT of the abd/pelvis showed hepatomegaly and hepatic stenosis. Labs: Bili 22.4, AST 420, ALT 130, alk phos 230, lipase 589 on day of admission to the ICU (05/17). His Maddrey score this morning increased from 31.4 at admission to 32.[address] Rojas (GI) was consulted from [facility] who recommended patient start methyprednisolone 40 mg daily for 30 days. He was started on IV methylprednisolone for aspiration risk. Today, he is alert and oriented and there is low risk for aspiration. He will continue on daily oral methylprednisolone at this time. Patient is still jaundiced. His MELD Score on 05/19 was 6% with 19 points. Maddrey score: 21.7. We recommended that he follow up with GI hepatology post discharge. Plan: 40 mg methylprednisolone daily to continue Consider IV methylprednisolone if patient is lethargic and at risk for aspiratio n Cont IV fluids for hydration, taper iv rate down as he eats Trend CMP to assess liver function Qualifiers: Ascites presence: without ascites Qualified Code(s): K70.10 - Alcoholic hepatitis without ascites (4) Hyperbilirubinemia Impression: Bilirubin upon admission was 21.3 and increased to 22.4 when admitted to the floor. This is expected given his CT abd/pelvis showed hepatic stenosis with hep atomegaly in the setting of alcoholism. His alk phos is also elevated, at 273 on admission and currently 221. At this point in time, there is no need for treatment. We will continue to trend his bilirubin levels and monitor his alcohol withdrawal. Bili was 23.1 yesterday and is up to 25.4 today. Plan: Trend bilirubin Will consider abd imaging (5) Hyponatremia Impression: IMPROVED Patient was admitted with hyponatremia at 127. He wa given IV fluids and his serum sodium increased to 138 today. This is likely due to dehydration in the setting of alcohol abuse. Patient reports drinking a fifth of vodka every day for the past few weeks due to increased stress. He will continue on IV fluids at this time. Plan: Trend CMP Continue on IV fluids that contain NS (6) Thrombocytopenia Impression: IMPROVED Platelet level has been incresing since adm. At this time, he does not require any medical intervention. We will continue to trend his CBC. Plan: Follow CBC daily (7) Hypokalemia Impression: Patient was admitted with a potassium 2.7. This is likely due to dehydration in the setting of alcoholism. Today he is requiring supplementation. Patient will receive oral potassium supplementation as outlined in the ICU protocol. Plan: Trend [facility] ICU potassium supplementation protocol (8) Smoking Impression: Patient smokes 1/2 to 1 pack per day. He is interested in quitting and would like a nicotine patch. Plan: Smoking cessation counseling Cont Nicotine patch (9) Depression Impression: He is awake and requesting his usual meds be resumed. at bedside told me that he has had depression for many years and intermittently stops taking his Wellbutrin when he feels good which makes him de pressed which then adds to his alcohol abuse. Plan: Will order his Bupropion (10) Peripheral neuropathy Impression: He is awake and requesting his usual meds be resumed Plan: Will restart his Gabapentin Qualifiers: Qualified Code(s): F10.930 - Alcohol use, unspecified with withdrawal, uncomplicated
[2023-05-20] MEDS: GABAPENTIN 300 MG CAPSULE PO SCH ×2 (14:22→21:55)
[2023-05-20] MEDS: buPROPion XL 150 MG TABLET PO SCH (14:22)
--- NOTE | 2023-05-20 14:59 | PROVIDER PROGRESS NOTE ---
Hospitalist Cross-cover Note - Cross-Cover Note Cross-Cover Note: This morning RN brought to my attention that patient's Admitting order was incorrectly written for him to be admitted to [facility], when in fact he went to ICU. The patient was planned to be admitted to and HAS BEEN in ICU status since 05/17/23. All notes and Registration should be aware that he is in ICU.
[2023-05-20] MEDS ORDERED: OMEPRAZOLE MAGNESIUM 20 MG PO SCH (16:00)
[2023-05-21] MEDS: SODIUM CHLORIDE FLUSH 0.9% 10 ML SYRINGE IVP SCH ×3 (00:23→17:34)
[2023-05-21 04:51] LABS: BASOPHILS % (AUTO) 0.1 %; EOSINOPHILS # (AUTO) 0.1 10^3/uL (0.0-0.7); HCT - HEMATOCRIT 38.9 % (42.0-52.0); HGB - HEMOGLOBIN 12.8 g/dL (14.0-18.0); LYMPHOCYTES # (AUTO) 1.5 10^3/uL (1.5-3.5); LYMPHOCYTES % (AUTO) 19.3 %; MEAN CORPUSCULAR HGB CONC 32.9 g/dL (32.0-36.0); MEAN CORPUSCULAR VOLUME 112.4 fL (80.0-94.0); MEAN PLATELET VOLUME 12.2 fL (7.4-11.4); MONOCYTES # (AUTO) 0.9 10^3/uL (0.0-1.0); MONOCYTES % (AUTO) 11.9 %; NEUTROPHILS # (AUTO) 5.2 10^3/uL (1.5-6.6); NEUTROPHILS % (AUTO) 65.1 %; NRBC ABSOLUTE COUNT (AUTO) 0.03 x10^3/uL; NUCLEATED RED BLOOD CELLS AUTO 0.4 /100WBC; PLT - PLATELET COUNT 183 10^3/uL (130-450); RED BLOOD COUNT 3.46 10^6/uL (4.70-6.10); RED CELL DISTRIBUTION WIDTH 16.9 % (12.0-15.0); WHITE BLOOD COUNT 7.9 x10^3/uL (4.8-10.8)
[2023-05-21 04:57] LABS: CALCIUM, IONIZED 1.12 mmol/L (1.15-1.33); VBG PH 7.51 (7.31-7.41)
[2023-05-21 05:00] LABS: SLIDE REVIEW? Indicated
[2023-05-21 05:08] LABS: INR 1.1 (0.8-1.2); PT - PROTHROMBIN TIME 12.1 secs (9.9-12.6)
[2023-05-21 05:46] LABS: MAGNESIUM 1.8 mg/dL (1.7-2.3); PHOSPHORUS 1.5 mg/dL (2.5-5.0)
[2023-05-21 05:55] LABS: BILIRUBIN,TOTAL 24.9 mg/dL (0.2-1.0); CALCIUM 8.9 mg/dL (8.5-10.3); CREATININE 0.9 mg/dL (0.6-1.3); POTASSIUM 4.3 mmol/L (3.5-4.5); TOTAL PROTEIN 6.1 g/dL (6.4-8.9)
[2023-05-21] MEDS: chlordiazePOXIDE 5 MG CAPSULE PO SCH ×3 (06:22→21:07)
[2023-05-21] MEDS: GABAPENTIN 300 MG CAPSULE PO SCH ×3 (06:22→21:07)
[2023-05-21] MEDS: PANTOPRAZOLE 40 MG TABLET PO SCH (06:23)
[2023-05-21 06:46] LABS: PLATELET ESTIMATE, MANUAL NORMAL (130-450,000) (NORMAL)
[2023-05-21] MEDS ORDERED: MAGNESIUM OXIDE 400 MG TABLET PO ONE (08:00)
[2023-05-21] MEDS ORDERED: POTASSIUM PHOSPHATE 21 MMOL in SODIUM CHLORIDE 0.9% 250 ML IV ONE (08:00)
[2023-05-21] MEDS: oxyCODONE 5 MG TABLET PO PRN (08:17)
[2023-05-21] MEDS: POTASSIUM CHLORIDE 20 MEQ TABLET PO SCH (08:18)
[2023-05-21] MEDS: buPROPion XL 150 MG TABLET PO SCH (08:18)
[2023-05-21] MEDS: NICOTINE 7 MG PATCH TOP SCH (08:18)
[2023-05-21] MEDS: THIAMINE 100 MG TABLET PO SCH (08:18)
[2023-05-21] MEDS: PRENATAL VITAMIN TABLET PO SCH (08:18)
[2023-05-21] MEDS: SODIUM PHOSPHATE 21 MMOL in SODIUM CHLORIDE 0.9% 250 ML IV ONE ×2 (08:34→10:32)
[2023-05-21] MEDS ORDERED: SODIUM CHLORIDE 0.9% 1,000 ML IV SCH (10:00)
[2023-05-21] MEDS: PrednisoLONE 15 MG/5 ML SYRUP SYR PO SCH (10:19)
--- NOTE | 2023-05-21 16:48 | PROVIDER PROGRESS NOTE ---
Assessment/Plan - Problem List (1) Alcohol withdrawal Qualifiers: Qualified Code(s): F10.930 - Alcohol use, unspecified with withdrawal, uncomplicated Assessment/Plan: Patient presented to the ER after having a witnessed seizure at home. There is a Hx of alcohol abuse for over a year, especially heavy x1 month. He needed iv Precedex drip in the ICU for sedation, since he was physically agitated with withdrawal. Plan: Patient will be moved put of ICU to [facility] today Will order PT and OT to see him today Continue CIWA protocol and iv Ativan as needed Continue on IV fluids, taper down as he takes a diet more He was getting Librium 20 mg TID and today I will start tapering it down to 10 mg TID I updated the at bedside today (2) Seizure Impression: Patient presented to the ER after suffering a witnessed seizure at home. The initial seizure lasted about 20 seconds and patient had at least two more seizures that were witnessed in the ER. He was given 2 doses of phenobarbital and given Ativan in the ER. Patient has not had seizures before and has never experienced alcohol withdrawal.As of 05/19, he has not had any recurring seizures. Plan: He does not require prophylactic anti-seizure medication at this time. Phenobarbital if seizures recur Cont Ativan as needed (3) Alcohol abuse He reported drinking about one fifth of vodka a day. First he said he was drinking heavily for the past few months, but today he said for 1 year. He had hardly been eating for the past 1 month while drinking heavily and has lost 20 lbs. Plan: Cont MOV and thiamine supplementation SW to see him re: abstinence and other resources (4) Alcoholic hepatitis Impression: Patient was admitted after experiencing a seizure at home and found to have sceleral icteris and jaundice. He admits to drinking one fifth of vodka daily for the past few weeks and chronic alcohol consumption for the last 3 years due to increased personal stress. CT of the abd/pelvis showed hepatomegaly Labs: Bili 22.4, AST 420, ALT 130, alk phos 230, lipase 589 on day of admission to the ICU (05/17). His Maddrey score increased to 32.[address] Rojas (GI) was consulted from [facility] who recommended patient start methyprednisolone 40 mg daily for 30 days. He was started on IV methylprednisolone for aspiration risk. Patient is still jaundiced. Plan: Since yesterday he is alert and oriented and there is low risk for aspiration. He will continue on daily oral methylprednisolone at this time. Cont IV fluids, tapering iv rate down to off today Trend CMP to follow liver function Will recommended that he follow up with GI-Hepatology post discharge. Qualifiers: Ascites presence: without ascites Qualified Code(s): K70.10 - Alcoholic hepatitis without ascites (4) Hyperbilirubinemia Impression: Bilirubin upon admission was 21.3 and increased to 25.4 yesterday Plan: Trend bilirubin (5) Hypokalemia Impression: Patient was admitted with a potassium 2.7. This is likely due to dehydration in the setting of alcoholism. he was started on po supplementation. Plan: Trend CMP I will decrease then stop K replacement (6) Depression Impression: Yesterday whe he becameawake he requested his usual meds be resumed. at bedside told me yesterday that he has had depression for many years and intermittently stops taking his Wellbutrin when he feels good which makes him depressed which then adds to his alcohol abuse. Plan: Cont his Bupropion (7) Peripheral neuropathy Impression: He described needing Gabapentin abd Oxycodone for foot lee, which he said was from excessive alcohol intake Plan: Cont his Gabapentin He has not needed narcotics he said, ever since adm Qualifiers: Qualified Code(s): F10.930 - Alcohol use, unspecified with withdrawal, uncomplicated (8) Smoking Impression: Patient smokes 1/2 to 1 pack per day. He is interested in quitting and wanted a nicotine patch. Plan: Smoking cessation counseling Cont Nicotine patch (9) Hyponatremia Impression: IMPROVED Patient was admitted with hyponatremia at 127. He was given IV fluids and his serum sodium increased. This is likely due to dehydration in the setting of alcohol abuse. Patient reports drinking a fifth of vodka every day Plan: Trend CMP Tapering IV NS to off. (10) Thrombocytopenia Impression: IMPROVED Platelet level has been improving since adm. At this time, he does not require any medical intervention. We will continue to trend his CBC. Plan: Follow CBC daily - Current Meds Current Meds: Current Medications Generic Name Dose Route Start Last Admin Trade Name Freq PRN Reason Stop Dose Admin Bupropion HCl 300 mg 05/20/23 14:00 05/21/23 08:18 Bupropion Xl 150 Mg Tablet PO 300 mg DAILY RYLEE Administration Chlordiazepoxide HCl 20 mg 05/18/23 14:00 05/21/23 14:13 Chlordiazepoxide 5 Mg Capsule PO 20 mg TID RYLEE Administration Gabapentin 900 mg 05/20/23 14:00 05/21/23 14:14 Gabapentin 300 Mg Capsule PO 900 mg TID RYLEE Administration Sodium Chloride 1,000 mls @ 83.333 mls/hr 05/21/23 10:00 05/21/23 10:30 Normal Saline 0.9% IV 05/21/23 21:59 83.333 mls/hr .Q12H RYLEE Administration Lorazepam 2 mg 05/18/23 13:23 05/20/23 03:16 Lorazepam 2 Mg/Ml Vial IVP 2 mg Q30M PRN Administration CIWA >8 Protocol Nicotine 1 patch 05/17/23 09:00 05/21/23 08:18 Nicotine 7 Mg Patch TOP 1 patch DAILY RYLEE Administration Oxycodone HCl 5 mg 05/17/23 12:08 05/21/23 08:17 Oxycodone 5 Mg Tablet PO 5 mg Q4HR PRN Administration Pain 5 to 7 Pantoprazole Sodium 40 mg 05/20/23 07:00 05/21/23 06:23 Pantoprazole 40 Mg Tablet PO 40 mg QDAC RYLEE Administration Prednisolone 40 mg 05/17/23 09:00 05/21/23 10:19 Prednisolone 15 Mg/5 Ml Syrup Syr PO 40 mg DAILY RYLEE Administration Multivit/Folic Acid/Iron 1 tab 05/18/23 14:00 05/21/23 08:18 Vitamin Tablet PO 1 tab DAILYWM RYLEE Administration Sodium Chloride 10 ml 05/17/23 17:00 05/21/23 08:34 Sodium Chloride Flush 0.9% 10 Ml Syringe IVP 10 ml 0100,0900,1700 RYLEE Administration Sodium Chloride 10 ml 05/17/23 12:08 05/20/23 21:58 Sodium Chloride Flush 0.9% 10 Ml Syringe IVP 10 ml PRN PRN Administration NEEDED PER PROVIDER ORDERS Thiamine HCl 100 mg 05/20/23 09:00 05/21/23 08:18 Thiamine 100 Mg Tablet PO 100 mg DAILY RYLEE Administration - Lab Result Fish Bone Diagrams: 05/21/23 04:30 05/21/23 04:30 - Additional Planning My Orders: My Active Orders 05/21/23 Evaluate and Treat OT [OT] Routine Evaluate and Treat PT [PT] Routine 05/21/23 09:11 Vital Signs [RC] Q4HR 05/21/23 10:00 Sodium Chloride 0.9% [Normal Saline 0.9%] 1,000 ml IV 83.333 mls/hr 05/22/23 09:00 Potassium Chloride [K-Dur] 40 meq PO DAILY Objective Vital Signs: Vital Signs - 24 hr 05/20/23 05/20/23 05/20/23 17:00 18:00 19:00 Temperature Heart Rate [ 102 H 97 108 H Monitoring electrodes] Respiratory 32 H 31 H 28 H Rate Blood Pressure [Left Brachial artery] Blood Pressure 106/79 109/75 114/76 [Right Brachial artery] Blood Pressure [Sitting] Blood Pressure [Standing] Blood Pressure [Supine] O2 Saturation 95 96 95 05/20/23 05/20/23 05/20/23 20:00 21:00 22:00 Temperature 37.3 C Heart Rate [ 95 89 100 Monitoring electrodes] Respiratory 35 H 42 H 36 H Rate Blood Pressure 117/81 H [Left Brachial artery] Blood Pressure 106/80 118/82 H [Right Brachial artery] Blood Pressure [Sitting] Blood Pressure [Standing] Blood Pressure [Supine] O2 Saturation 93 95 95 05/20/23 05/21/23 05/21/23 23:00 00:00 01:00 Temperature Heart Rate [ 103 H 107 H 96 Monitoring electrodes] Respiratory 35 H 35 H 35 H Rate Blood Pressure 101/66 111/77 [Left Brachial artery] Blood Pressure 101/66 [Right Brachial artery] Blood Pressure [Sitting] Blood Pressure [Standing] Blood Pressure [Supine] O2 Saturation 95 97 98 05/21/23 05/21/23 05/21/23 02:00 03:00 04:03 Temperature Heart Rate [ 85 115 H 105 H Monitoring electrodes] Respiratory 21 26 H 31 H Rate Blood Pressure 107/78 [Left Brachial artery] Blood Pressure 122/80 108/77 [Right Brachial artery] Blood Pressure [Sitting] Blood Pressure [Standing] Blood Pressure [Supine] O2 Saturation 94 95 95 05/21/23 05/21/23 05/21/23 05:00 06:22 07:00 Temperature Heart Rate [ 102 H 115 H 111 H Monitoring electrodes] Respiratory 33 H 28 H 36 H Rate Blood Pressure [Left Brachial artery] Blood Pressure 109/79 114/78 103/72 [Right Brachial artery] Blood Pressure [Sitting] Blood Pressure [Standing] Blood Pressure [Supine] O2 Saturation 95 94 95 05/21/23 05/21/23 05/21/23 08:00 09:00 11:44 Temperature 37.5 C Heart Rate [ 105 H Monitoring electrodes] Respiratory 33 H 26 H Rate Blood Pressure [Left Brachial artery] Blood Pressure 110/85 H 115/83 H [Right Brachial artery] Blood Pressure 114/85 H [Sitting] Blood Pressure 108/74 [Standing] Blood Pressure 125/79 [Supine] O2 Saturation 95 96 05/21/23 12:04 Temperature 37.6 C Heart Rate [ 129 H Monitoring electrodes] Respiratory 31 H Rate Blood Pressure 113/84 H [Left Brachial artery] Blood Pressure [Right Brachial artery] Blood Pressure [Sitting] Blood Pressure [Standing] Blood Pressure [Supine] O2 Saturation 97 Oxygen O2 Source Room air I&O (Last 24 Hrs): Intake and Output Totals x24h 05/19/23 05/20/23 05/21/23 23:59 23:59 23:59 Intake Total 0584.796 7219.122 934.8 Output Total 1725 925 0 Balance 47.741 2627.122 934.8 General: Alert, Oriented x3, Other (More interactive, smiling, has eye contact) HEENT: Mucous membr. moist/pink, Other (icteric) Neck: Supple, No JVD Neuro: Alert, Non Focal, Other (Bradykinetic and poor balance but is more interactive, smiling, less lethargic) Cardiovascular: Regular rate, No murmurs Respiratory: No respiratory distress, Breath sounds nml Abdomen: Normal bowel sounds, Soft, No tenderness Extremities: No clubbing, No edema, No tenderness/swelling - Results Results: Laboratory Results WBC 7.9 x10^3/uL (4.8-10.8) 05/21/23 04:30 RBC 3.46 10^6/uL (4.70-6.10) L 05/21/23 04:30 Hgb 12.8 g/dL (14.0-18.0) L 05/21/23 04:30 Hct 38.9 % (42.0-52.0) L 05/21/23 04:30 MCV 112.4 fL (80.0-94.0) H 05/21/23 04:30 MCH 37.0 pg (27.0-31.0) H 05/21/23 04:30 MCHC 32.9 g/dL (32.0-36.0) 05/21/23 04:30 RDW 16.9 % (12.0-15.0) H 05/21/23 04:30 Plt Count 183 10^3/uL (130-450) 05/21/23 04:30 MPV 12.2 fL (7.4-11.4) H 05/21/23 04:30 Neut # (Auto) 5.2 10^3/uL (1.5-6.6) 05/21/23 04:30 Lymph # (Auto) 1.5 10^3/uL (1.5-3.5) 05/21/23 04:30 [place] # (Auto) 0.9 10^3/uL (0.0-1.0) 05/21/23 04:30 Eos # (Auto) 0.1 10^3/uL (0.0-0.7) 05/21/23 04:30 Baso # (Auto) 0.0 10^3/uL (0.0-0.1) 05/21/23 04:30 Absolute Nucleated RBC 0.03 x10^3/uL 05/21/23 04:30 Nucleated RBC % 0.4 /100WBC 05/21/23 04:30 Manual Slide Review Indicated 05/21/23 04:30 Platelet Estimate NORMAL (130-450,000) (NORMAL) 05/21/23 04:30 RBC Morph Micro Appear 2+ MACROCYTOSIS (NORMAL) 1+ HYPOCHROMASIA (NORMAL) 05/21/23 04:30 RBC Morph Micro Appear 2+ MACROCYTOSIS (NORMAL) 1+ HYPOCHROMASIA (NORMAL) 05/21/23 04:30 PT 12.1 secs (9.9-12.6) 05/21/23 04:30 INR 1.1 (0.8-1.2) 05/21/23 04:30 APTT 28.7 secs (24.9-33.3) 05/16/23 22:16 VBG pH 7.510 (7.31-7.41) H 05/21/23 04:30 Ionized Calcium 1.12 mmol/L (1.15-1.33) L 05/21/23 04:30 Sodium 132 mmol/L (135-145) L 05/21/23 04:30 Potassium 4.3 mmol/L (3.5-4.5) 05/21/23 04:30 Chloride 100 mmol/L (101-111) L 05/21/23 04:30 Carbon Dioxide 25 mmol/L (21-32) 05/21/23 04:30 Anion Gap 7.0 (6-13) 05/21/23 04:30 BUN 9 mg/dL (6-20) 05/21/23 04:30 Creatinine 0.9 mg/dL (0.6-1.3) 05/21/23 04:30 Estimated GFR (MDRD) 93 (>89) 05/21/23 04:30 Glucose 84 mg/dL (74-104) 05/21/23 04:30 Calcium 8.9 mg/dL (8.5-10.3) 05/21/23 04:30 Phosphorus 1.5 mg/dL (2.5-5.0) L 05/21/23 04:30 Magnesium 1.8 mg/dL (1.7-2.3) 05/21/23 04:30 Total Bilirubin 24.9 mg/dL (0.2-1.0) H 05/21/23 04:30 AST 334 IU/L (10-42) H 05/21/23 04:30 ALT 154 IU/L (10-60) H 05/21/23 04:30 Alkaline Phosphatase 216 IU/L (42-121) H 05/21/23 04:30 Ammonia 61.6 umol/L (18-72) 05/17/23 07:40 Total Protein 6.1 g/dL (6.4-8.9) L 05/21/23 04:30 Albumin 3.0 g/dL (3.2-5.5) L 05/21/23 04:30 Globulin 3.1 g/dL (2.1-4.2) 05/21/23 04:30 Albumin/Globulin Ratio 1.0 (1.0-2.2) 05/21/23 04:30 Lipase 589 U/L (11-82) H 05/17/23 07:40 Vitamin B12 902 pg/mL (180-914) 05/19/23 08:00 Folate 5.5 ng/mL (5.90 - >24.8) L 05/19/23 08:00 Urine Color DARK YELLOW 05/17/23 06:34 Urine Clarity CLEAR (CLEAR) 05/17/23 06:34 Urine pH 7.0 PH (5.0-7.5) 05/17/23 06:34 Ur Specific [place] 1.010 (1.002-1.030) 05/17/23 06:34 Urine Protein TRACE mg/dL (NEGATIVE) 05/17/23 06:34 Urine Glucose (UA) NEGATIVE mg/dL (NEGATIVE) 05/17/23 06:34 Urine Ketones NEGATIVE mg/dL (NEGATIVE) 05/17/23 06:34 Urine Occult Blood NEGATIVE (NEGATIVE) 05/17/23 06:34 Urine Nitrite NEGATIVE (NEGATIVE) 05/17/23 06:34 Urine Bilirubin LARGE (NEGATIVE) H 05/17/23 06:34 Urine Urobilinogen 4 E.U./dL (NORMAL) H 05/17/23 06:34 Ur Leukocyte Esterase NEGATIVE (NEGATIVE) 05/17/23 06:34 Ur Microscopic Review NOT INDICATED 05/17/23 06:34 Urine Culture Comments NOT INDICATED 05/17/23 06:34 Nasal Screen MRSA (PCR) NEGATIVE (NEGATIVE) 05/17/23 14:30 Urine Opiates Screen POSITIVE (NEGATIVE) H 05/17/23 06:34 Ur Buprenorphine Scrn NEGATIVE (NEGATIVE) 05/17/23 06:34 Ur Oxycodone Screen NEGATIVE (NEGATIVE) 05/17/23 06:34 Urine Methadone Screen NEGATIVE (NEGATIVE) 05/17/23 06:34 Ur Barbiturates Screen POSITIVE (NEGATIVE) H 05/17/23 06:34 Ur Tricyclics Screen NEGATIVE (NEGATIVE) 05/17/23 06:34 Ur Phencyclidine Scrn NEGATIVE (NEGATIVE) 05/17/23 06:34 Ur Amphetamine Screen NEGATIVE (NEGATIVE) 05/17/23 06:34 U Methamphetamines Scrn NEGATIVE (NEGATIVE) 05/17/23 06:34 U Benzodiazepines Scrn POSITIVE (NEGATIVE) H 05/17/23 06:34 Urine Cocaine Screen NEGATIVE (NEGATIVE) 05/17/23 06:34 U Cannabinoids Screen NEGATIVE (NEGATIVE) 05/17/23 06:34 Ur Drug Screen Comment CUTOFF CONC BELOW: 05/17/23 06:34 Ethyl Alcohol < 10.0 mg/dL 05/16/23 22:16
[2023-05-22] MEDS: LORazepam 2 MG/ML VIAL IVP PRN (00:43)
[2023-05-22] MEDS: SODIUM CHLORIDE FLUSH 0.9% 10 ML SYRINGE IVP SCH ×3 (00:44→21:24)
[2023-05-22 05:59] LABS: BASOPHILS % (AUTO) 0.2 %; EOSINOPHILS # (AUTO) 0.1 10^3/uL (0.0-0.7); EOSINOPHILS % (AUTO) 1.1 %; HCT - HEMATOCRIT 35.7 % (42.0-52.0); LYMPHOCYTES # (AUTO) 1.7 10^3/uL (1.5-3.5); LYMPHOCYTES % (AUTO) 20.5 %; MEAN CORPUSCULAR HEMOGLOBIN 37.4 pg (27.0-31.0); MEAN CORPUSCULAR HGB CONC 33.6 g/dL (32.0-36.0); MEAN CORPUSCULAR VOLUME 111.2 fL (80.0-94.0); MEAN PLATELET VOLUME 12.2 fL (7.4-11.4); MONOCYTES # (AUTO) 1.2 10^3/uL (0.0-1.0); NRBC ABSOLUTE COUNT (AUTO) 0.02 x10^3/uL; NUCLEATED RED BLOOD CELLS AUTO 0.2 /100WBC; PLT - PLATELET COUNT 203 10^3/uL (130-450); RED BLOOD COUNT 3.21 10^6/uL (4.70-6.10); RED CELL DISTRIBUTION WIDTH 16.3 % (12.0-15.0); WHITE BLOOD COUNT 8.2 x10^3/uL (4.8-10.8)
[2023-05-22 06:01] LABS: CALCIUM, IONIZED 1.13 mmol/L (1.15-1.33); VBG PH 7.497 (7.31-7.41)
[2023-05-22] MEDS: PANTOPRAZOLE 40 MG TABLET PO SCH (06:02)
[2023-05-22] MEDS: chlordiazePOXIDE 5 MG CAPSULE PO SCH ×3 (06:02→21:24)
[2023-05-22] MEDS: GABAPENTIN 300 MG CAPSULE PO SCH ×3 (06:02→21:24)
[2023-05-22 06:05] LABS: SLIDE REVIEW? Indicated
[2023-05-22 06:17] LABS: MAGNESIUM 1.8 mg/dL (1.7-2.3); PHOSPHORUS 3.8 mg/dL (2.5-5.0)
[2023-05-22 06:50] LABS: CREATININE 0.8 mg/dL (0.6-1.3)
[2023-05-22 06:53] LABS: ALBUMIN 2.9 g/dL (3.2-5.5); BILIRUBIN,TOTAL 24.3 mg/dL (0.2-1.0); CALCIUM 8.8 mg/dL (8.5-10.3); POTASSIUM 3.6 mmol/L (3.5-4.5); TOTAL PROTEIN 5.8 g/dL (6.4-8.9)
[2023-05-22] MEDS: NICOTINE 7 MG PATCH TOP SCH (09:25)
[2023-05-22] MEDS: PRENATAL VITAMIN TABLET PO SCH (09:25)
[2023-05-22] MEDS: POTASSIUM CHLORIDE 20 MEQ TABLET PO SCH (09:26)
[2023-05-22] MEDS: buPROPion XL 150 MG TABLET PO SCH (09:26)
[2023-05-22] MEDS: PrednisoLONE 15 MG/5 ML SYRUP SYR PO SCH (09:27)
[2023-05-22] MEDS: THIAMINE 100 MG TABLET PO SCH (09:31)
[2023-05-22] MEDS: oxyCODONE 5 MG TABLET PO PRN ×2 (09:40→14:22)
--- NOTE | 2023-05-22 13:12 | PROVIDER PROGRESS NOTE ---
Assessment/Plan - Problem List (1) Alcohol withdrawal Qualifiers: Qualified Code(s): F10.930 - Alcohol use, unspecified with withdrawal, uncomplicated Assessment/Plan: Patient presented to the ER after having a witnessed seizure at home. There is a Hx of alcohol abuse for over a year, especially heavy x1 month. He needed iv Precedex drip in the ICU for sedation, since he was physically agitated during alcohol withdrawal. He was moved out of ICU. PT evaluated him and does note significant ataxia Plan: Continue CIWA protocol and iv Ativan as needed Cont the Librium taper Cont PT and OT I updated the and pt's mother at bedside today (2) Seizure Impression: Patient presented to the ER after suffering a witnessed seizure at home. The initial seizure lasted about 20 seconds and patient had at least two more seizures that were witnessed in the ER. He was given 2 doses of phenobarbital and given Ativan in the ER. Patient has not had seizures before and has never experienced alcohol withdrawal.As of 05/19, he has not had any recurring seizures. Plan: He does not require prophylactic anti-seizure medication at this time. Phenobarbital if seizures recur Cont Ativan as needed (3) Alcohol abuse He reported drinking about one fifth of vodka a day. First he said he was drinking heavily for the past few months, but today he said for 1 year. He had hardly been eating for the past 1 month while drinking heavily and has lost 20 lbs. SW saw him and at bedside, re: abstinence and other resources Plan: Cont MOV and thiamine supplementation (4) Alcoholic hepatitis Impression: Patient was admitted after experiencing a seizure at home and found to have sceleral icteris and jaundice. He admits to drinking one fifth of vodka daily for the past few weeks and chronic alcohol consumption for the last 3 years due to increased personal stress. CT of the abd/pelvis showed hepatomegaly Labs: Bili 22.4, AST 420, ALT 130, alk phos 230, lipase 589 on day of admission to the ICU (05/17). His Maddrey score increased to 32.[address] Rojas (GI) was consulted from [facility] who recommended patient start methyprednisolone 40 mg daily for 30 days. He was started on IV methylprednisolone for aspiration risk. Patient is still jaundiced. Plan: He is alert and oriented, so low risk for aspiration. He will continue on daily oral methylprednisolone at this time. Trend CMP to follow LFTs Will recommended that he follow up with GI-Hepatology post discharge. Qualifiers: Ascites presence: without ascites Qualified Code(s): K70.10 - Alcoholic hepatitis without ascites (5) Hyperbilirubinemia Impression: Bilirubin upon admission was 21.3 and increased to 25.4, is 24.3 today (all labs were reviewed) Plan: Trend bilirubin (6) Depression Impression: at bedside described that he has had depression for many years and intermittently stops taking his Wellbutrin when he feels good which makes him depressed which then adds to his alcohol abuse. Plan: Cont his Bupropion (7) Peripheral neuropathy Impression: He described needing Gabapentin and Oxycodone for foot pain, which he said was from excessive alcohol intake Plan: Cont his Gabapentin He has not needed narcotics he said, ever since adm Qualifiers: Qualified Code(s): F10.930 - Alcohol use, unspecified with withdrawal, uncomplicated (8) Smoking Impression: Patient smokes 1/2 to 1 pack per day. He is interested in quitting and wanted a nicotine patch. Plan: Smoking cessation counseling Cont Nicotine patch (9) Hyponatremia Impression: IMPROVED Patient was admitted with hyponatremia at 127. He was given IV fluids and his serum sodium increased. This is likely due to dehydration in the setting of alcohol abuse. Patient reports drinking a fifth of vodka every day Plan: Monitor BMP daily (10) Hypokalemia Impression: RESOLVED Patient was admitted with a potassium 2.7. This is likely due to dehydration in the setting of alcoholism. He received po supplementation. I decreased then stopped po K replacement Plan: Monitor BMP daily (11) Thrombocytopenia Impression: IMPROVED Platelet level has been improving since adm. Plan: Follow CBC daily - Current Meds Current Meds: Current Medications Generic Name Dose Route Start Last Admin Trade Name Freq PRN Reason Stop Dose Admin Bupropion HCl 300 mg 05/20/23 14:00 05/22/23 09:26 Bupropion Xl 150 Mg Tablet PO 300 mg DAILY RYLEE Administration Chlordiazepoxide HCl 20 mg 05/18/23 14:00 05/22/23 06:02 Chlordiazepoxide 5 Mg Capsule PO 20 mg TID RYLEE Administration Gabapentin 900 mg 05/20/23 14:00 05/22/23 06:02 Gabapentin 300 Mg Capsule PO 900 mg TID RYLEE Administration Lorazepam 2 mg 05/18/23 13:23 05/22/23 00:43 Lorazepam 2 Mg/Ml Vial IVP 2 mg Q30M PRN Administration CIWA >8 Protocol Nicotine 1 patch 05/17/23 09:00 05/22/23 09:25 Nicotine 7 Mg Patch TOP 1 patch DAILY RYLEE Administration Oxycodone HCl 5 mg 05/17/23 12:08 05/22/23 09:40 Oxycodone 5 Mg Tablet PO 5 mg Q4HR PRN Administration Pain 5 to 7 Pantoprazole Sodium 40 mg 05/20/23 07:00 05/22/23 06:02 Pantoprazole 40 Mg Tablet PO 40 mg QDAC RYLEE Administration Potassium Chloride 40 meq 05/22/23 09:00 05/22/23 09:26 Potassium Chloride 20 Meq Tablet PO 40 meq DAILY RYLEE Administration Prednisolone 40 mg 05/17/23 09:00 05/22/23 09:27 Prednisolone 15 Mg/5 Ml Syrup Syr PO 40 mg DAILY RYLEE Administration Multivit/Folic Acid/Iron 1 tab 05/18/23 14:00 05/22/23 09:25 Vitamin Tablet PO 1 tab DAILYWM RYLEE Administration Sodium Chloride 10 ml 05/17/23 17:00 05/22/23 09:31 Sodium Chloride Flush 0.9% 10 Ml Syringe IVP 10 ml 0100,0900,1700 RYLEE Administration Sodium Chloride 10 ml 05/17/23 12:08 05/20/23 21:58 Sodium Chloride Flush 0.9% 10 Ml Syringe IVP 10 ml PRN PRN Administration NEEDED PER PROVIDER ORDERS Thiamine HCl 100 mg 05/20/23 09:00 05/22/23 09:31 Thiamine 100 Mg Tablet PO 100 mg DAILY RYLEE Administration - Lab Result Fish Bone Diagrams: 05/22/23 05:11 05/22/23 05:11 - Additional Planning My Orders: My Active Orders 05/22/23 09:00 Potassium Chloride [K-Dur] 40 meq PO DAILY Subjective - Subjective Patient Reports: Feeling Better (Feels even more alert and sharp. No nausea or vomiting.) Objective Vital Signs: Vital Signs - 24 hr 05/21/23 05/21/23 05/22/23 16:51 22:06 00:38 Temperature 37.2 C 36.7 C 37.3 C Heart Rate [ 88 Brachial] Heart Rate [ 102 H 118 H Monitoring electrodes] Respiratory 24 12 18 Rate Blood Pressure 118/86 H 118/79 [Left Brachial artery] Blood Pressure 123/94 H [Right Brachial artery] O2 Saturation 96 95 97 05/22/23 05/22/23 05:10 09:34 Temperature 37.4 C 37.2 C Heart Rate [ 92 96 Brachial] Heart Rate [ Monitoring electrodes] Respiratory 18 16 Rate Blood Pressure 127/83 H 126/84 H [Left Brachial artery] Blood Pressure [Right Brachial artery] O2 Saturation 95 96 Oxygen O2 Source Room air I&O (Last 24 Hrs): Intake and Output Totals x24h 05/20/23 05/21/23 05/22/23 23:59 23:59 23:59 Intake Total 3552.122 2294.80 540 Output Total 925 0 Balance 2627.122 2294.80 540 General: Alert, Oriented x3 HEENT: Mucous membr. moist/pink, Other (Icteric) Neck: Supple Neuro: Alert, Non Focal, Other (No tremor, no nystagmus) Cardiovascular: Regular rate Respiratory: No respiratory distress Abdomen: Soft, No tenderness Extremities: No clubbing, No edema - Results Results: Laboratory Results WBC 8.2 x10^3/uL (4.8-10.8) 05/22/23 05:11 RBC 3.21 10^6/uL (4.70-6.10) L 05/22/23 05:11 Hgb 12.0 g/dL (14.0-18.0) L 05/22/23 05:11 Hct 35.7 % (42.0-52.0) L 05/22/23 05:11 MCV 111.2 fL (80.0-94.0) H 05/22/23 05:11 MCH 37.4 pg (27.0-31.0) H 05/22/23 05:11 MCHC 33.6 g/dL (32.0-36.0) 05/22/23 05:11 RDW 16.3 % (12.0-15.0) H 05/22/23 05:11 Plt Count 203 10^3/uL (130-450) 05/22/23 05:11 MPV 12.2 fL (7.4-11.4) H 05/22/23 05:11 Neut # (Auto) 5.0 10^3/uL (1.5-6.6) 05/22/23 05:11 Lymph # (Auto) 1.7 10^3/uL (1.5-3.5) 05/22/23 05:11 [place] # (Auto) 1.2 10^3/uL (0.0-1.0) H 05/22/23 05:11 Eos # (Auto) 0.1 10^3/uL (0.0-0.7) 05/22/23 05:11 Baso # (Auto) 0.0 10^3/uL (0.0-0.1) 05/22/23 05:11 Absolute Nucleated RBC 0.02 x10^3/uL 05/22/23 05:11 Nucleated RBC % 0.2 /100WBC 05/22/23 05:11 Manual Slide Review Indicated 05/22/23 05:11 Platelet Estimate NORMAL (130-450,000) (NORMAL) 05/21/23 04:30 RBC Morph Micro Appear 2+ MACROCYTOSIS (NORMAL) 1+ HYPOCHROMASIA (NORMAL) 1+ POLYCHROMASIA (NORMAL) 05/22/23 05:11 RBC Morph Micro Appear 2+ MACROCYTOSIS (NORMAL) 1+ HYPOCHROMASIA (NORMAL) 1+ POLYCHROMASIA (NORMAL) 05/22/23 05:11 RBC Morph Micro Appear 2+ MACROCYTOSIS (NORMAL) 1+ HYPOCHROMASIA (NORMAL) 1+ POLYCHROMASIA (NORMAL) 05/22/23 05:11 PT 12.1 secs (9.9-12.6) 05/21/23 04:30 INR 1.1 (0.8-1.2) 05/21/23 04:30 APTT 28.7 secs (24.9-33.3) 05/16/23 22:16 VBG pH 7.497 (7.31-7.41) H 05/22/23 05:11 Ionized Calcium 1.13 mmol/L (1.15-1.33) L 05/22/23 05:11 Sodium 133 mmol/L (135-145) L 05/22/23 05:11 Potassium 3.6 mmol/L (3.5-4.5) 05/22/23 05:11 Chloride 99 mmol/L (101-111) L 05/22/23 05:11 Carbon Dioxide 25 mmol/L (21-32) 05/22/23 05:11 Anion Gap 9.0 (6-13) 05/22/23 05:11 BUN 7 mg/dL (6-20) 05/22/23 05:11 Creatinine 0.8 mg/dL (0.6-1.3) 05/22/23 05:11 Estimated GFR (MDRD) 106 (>89) 05/22/23 05:11 Glucose 85 mg/dL (74-104) 05/22/23 05:11 Calcium 8.8 mg/dL (8.5-10.3) 05/22/23 05:11 Phosphorus 3.8 mg/dL (2.5-5.0) 05/22/23 05:11 Magnesium 1.8 mg/dL (1.7-2.3) 05/22/23 05:11 Total Bilirubin 24.3 mg/dL (0.2-1.0) H 05/22/23 05:11 AST 299 IU/L (10-42) H 05/22/23 05:11 ALT 161 IU/L (10-60) H 05/22/23 05:11 Alkaline Phosphatase 193 IU/L (42-121) H 05/22/23 05:11 Ammonia 61.6 umol/L (18-72) 05/17/23 07:40 Total Protein 5.8 g/dL (6.4-8.9) L 05/22/23 05:11 Albumin 2.9 g/dL (3.2-5.5) L 05/22/23 05:11 Globulin 2.9 g/dL (2.1-4.2) 05/22/23 05:11 Albumin/Globulin Ratio 1.0 (1.0-2.2) 05/22/23 05:11 Lipase 589 U/L (11-82) H 05/17/23 07:40 Vitamin B12 902 pg/mL (180-914) 05/19/23 08:00 Folate 5.5 ng/mL (5.90 - >24.8) L 05/19/23 08:00 Urine Color DARK YELLOW 05/17/23 06:34 Urine Clarity CLEAR (CLEAR) 05/17/23 06:34 Urine pH 7.0 PH (5.0-7.5) 05/17/23 06:34 Ur Specific [place] 1.010 (1.002-1.030) 05/17/23 06:34 Urine Protein TRACE mg/dL (NEGATIVE) 05/17/23 06:34 Urine Glucose (UA) NEGATIVE mg/dL (NEGATIVE) 05/17/23 06:34 Urine Ketones NEGATIVE mg/dL (NEGATIVE) 05/17/23 06:34 Urine Occult Blood NEGATIVE (NEGATIVE) 05/17/23 06:34 Urine Nitrite NEGATIVE (NEGATIVE) 05/17/23 06:34 Urine Bilirubin LARGE (NEGATIVE) H 05/17/23 06:34 Urine Urobilinogen 4 E.U./dL (NORMAL) H 05/17/23 06:34 Ur Leukocyte Esterase NEGATIVE (NEGATIVE) 05/17/23 06:34 Ur Microscopic Review NOT INDICATED 05/17/23 06:34 Urine Culture Comments NOT INDICATED 05/17/23 06:34 Nasal Screen MRSA (PCR) NEGATIVE (NEGATIVE) 05/17/23 14:30 Urine Opiates Screen POSITIVE (NEGATIVE) H 05/17/23 06:34 Ur Buprenorphine Scrn NEGATIVE (NEGATIVE) 05/17/23 06:34 Ur Oxycodone Screen NEGATIVE (NEGATIVE) 05/17/23 06:34 Urine Methadone Screen NEGATIVE (NEGATIVE) 05/17/23 06:34 Ur Barbiturates Screen POSITIVE (NEGATIVE) H 05/17/23 06:34 Ur Tricyclics Screen NEGATIVE (NEGATIVE) 05/17/23 06:34 Ur Phencyclidine Scrn NEGATIVE (NEGATIVE) 05/17/23 06:34 Ur Amphetamine Screen NEGATIVE (NEGATIVE) 05/17/23 06:34 U Methamphetamines Scrn NEGATIVE (NEGATIVE) 05/17/23 06:34 U Benzodiazepines Scrn POSITIVE (NEGATIVE) H 05/17/23 06:34 Urine Cocaine Screen NEGATIVE (NEGATIVE) 05/17/23 06:34 U Cannabinoids Screen NEGATIVE (NEGATIVE) 05/17/23 06:34 Ur Drug Screen Comment CUTOFF CONC BELOW: 05/17/23 06:34 Ethyl Alcohol < 10.0 mg/dL 05/16/23 22:16
[2023-05-23] MEDS: GABAPENTIN 300 MG CAPSULE PO SCH (05:49)
[2023-05-23] MEDS: chlordiazePOXIDE 5 MG CAPSULE PO SCH (05:50)
[2023-05-23] MEDS: PANTOPRAZOLE 40 MG TABLET PO SCH (05:51)
[2023-05-23] MEDS: POTASSIUM CHLORIDE 20 MEQ TABLET PO SCH (08:54)
[2023-05-23] MEDS: THIAMINE 100 MG TABLET PO SCH (08:54)
[2023-05-23] MEDS: PrednisoLONE 15 MG/5 ML SYRUP SYR PO SCH (08:54)
[2023-05-23] MEDS: buPROPion XL 150 MG TABLET PO SCH (08:54)
[2023-05-23] MEDS: PRENATAL VITAMIN TABLET PO SCH (08:54)
[2023-05-23] MEDS: NICOTINE 7 MG PATCH TOP SCH (08:55)
[2023-05-23] MEDS: SODIUM CHLORIDE FLUSH 0.9% 10 ML SYRINGE IVP SCH ×2 (08:55)
--- NOTE | 2023-05-23 11:27 | Discharge Plan ---
Discharge Plan Problem Reviewed?: Yes Disposition: Home, Self Care Condition: Fair Prescriptions: predniSONE [Deltasone] 40 mg PO DAILY 24 Days #48 tablet Folic Acid/B Complex C No.17 [Dexifol Caplet] 5 mg PO DAILY #30 tablet Potassium Chloride [K-Dur] 20 meq PO DAILY #30 tab chlordiazePOXIDE [Librium] 5 - 10 mg PO BID #12 cap Thiamine [Vitamin B-1] 100 mg PO DAILY #30 tab Diet: Regular Activity Restrictions: Activity as Tolerated Shower Restrictions: No Driving Restrictions: Yes (Due to ongoing imbalance, no driving) Assistance Devices: Walker Weight Bearing: Full Weight Instruction Topics: Cirrhosis Liver Dc, Liver Probs Signs Sx Ch Health Concerns: You were admitted to the hospital in critical condition with an alcohol withdrawal seizure. You needed to be in the ICU going through several days of alcohol withdrawal. We found that you have significant liver failure, caused by alcohol abuse. Your blood test show persistently elevated bilirubin, causing your skin and eyes to be yellow. After recommendations were obtained from a Motorboat Operator, you have been started on steroids to help treat the liver. Your ambulation is ataxic (poor balance, caused by alcohol affects to your brain). You should not be driving a car because of this poor balance. A doctor or provider needs to okay for you to resume driving in the future. It may be helpful for you to attend outpatient physical therapy. This would have to be ordered by your primary doctor. You are being discharged home today. There several are new prescriptions you should now be taking, and these were electronically sent to your [facility] pharmacy in [place]. Please resume taking your pre-hospital medications, especially remember to take your antidepressant daily even if you feel not depressed. You need your Primary Care Provider to refer you to a Motorboat Operator or liver specialist (Senior Trial Attorney). You should abstain from alcohol completely, and resources to help you with this were provided by our staff. You should have an office visit with your Primary Care Provider in the next 1 to 2 weeks. Blood test will be repeated in some medicines may need adjustment. Please discuss referral to a Motorboat Operator or liver specialist (Senior Trial Attorney). Plan of Treatment: As above. Care Goals: Improvement in symptoms and stabilization are the goals. Assessment: The patient understands and is agreeable with the plan. Additional Instructions or Follow Up instructions: If you have new or worsening symptoms, call your PCP for advice, or come to a Walk-In Clinic or the ER. No Smoking: If you smoke, Please STOP! Call for help. Follow-up with: JOSEF RITTER ARNP [Primary Care Provider] -
--- NOTE | 2023-05-23 12:03 | DISCHARGE SUMMARY ---
Discharge Summary Admit Date: 05/17/23 Discharge Date: 05/23/23 Discharging Provider: Margareth Barraza MD Primary Care Provider: MIRIAM Hernández Code Status: Attempt Resuscitation Condition at Discharge: Fair Discharge Disposition: 01 Home, Self Care - HPI History of Present Illness: Jim is a 42 year old male with a history of alcoholism who presents to the ED after having a witnessed seizure at home then falling/hitting his head. The seizure lasted ~ 20 seconds. Last drink was 4 hours prior to arrival at ED. Patient drinks about 1/5 vodka a day and he has been trying to cut back the last few days. He has noticed that his skin and eyes have been turning yellow over the past few weeks. Patient's reports patient has had jaundiced skin before due to alcoholism but it resolved with reduction of alcohol consumption. While in the ER, patient had several seizures, two of which were witnssed by ED RN. He had a head CT that showed no acute intracranial pathology. CT of the abd/pelvis showed a decompressed gallbladder, no billiary duct dilation, hepatic stenosis and hepatomegaly, and ankylosis at SI joints. He required 2 mg IV ashlee zepam for generalized tremulous that increased as the previous dose of lorazepam wore off. orthopedically impaired teacher GI provider Dr. Rojas ([facility]) recommended starting methylprednisolone 40mg QD x 30 days for borderline Maddrey's score and that there was no need for transfer. Initial Maddrey's score was 31.4 (cutoff for recommendation for methylprednisolone is 32). Patient was started on IV methylprednisolone given repeated seizures and aspiration risk. His AM labs show an increase in bilirubin and his Maddrey score is now 32.5. Currently, patient complains of headache and feels overall uncomfortable. He has visible tremors but denies any palpitations, SOB, pain, vision changes, or diaphoresis. He notes he started drinking hard liquor daily about three years ago when he had multiple stressors in his life. 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 He also smokes cigarettes at 1/2-1 pack per day. 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 - HOSPITAL COURSE Hospital Course: (1) Alcohol withdrawal Patient presented to the ER after having a witnessed seizure at home, had more in the ER. There was a Hx of alcohol abuse for over a year, especially heavy x1 month. He was admitted to the ICU and needed iv Precedex drip for sedation, since he was physically agitated during his alcohol withdrawal. He was later on a CIWA protocol and needed iv Ativan. Oral Librium was also used and was tapering down as he was discharged. (2) Seizure Patient presented to the ER after suffering a witnessed seizure at home. The patient had at least two more seizures that were witnessed in the ER. He was given 2 doses of phenobarbital and given Ativan in the ER. Patient had not had seizures before and has never experienced alcohol withdrawal. He did not require prophylactic anti-seizure medications. He had no further seizures. (3) Alcohol abuse He reported drinking about one fifth of vodka a day. He was drinking heavily for 1 year. He admitted he was hardly eating for the past 1 month while drinking heavily and had lost 20 lbs. He was put on Thiamine and multivitamin. He was seen by SW, said he was motivated to stop heavy drinking, and was given many resources. (4) Alcoholic hepatitis : K70.10 - Alcoholic hepatitis without ascites Patient had sceleral icteris and jaundice. CT of the abd/pelvis showed hepatomegaly. Admission labs showed Bili 22.4, AST 420, ALT 130, alk phos 230, lipase 589. His Maddrey score was as high as 32.5. Dr. Rojas (GI at [facility]) was consulted who recommended patient be treated with Methyprednisolone 40 mg daily for 30 days. He was started on IV methylprednisolone, initially while somnolent and had aspiration risk. He was transitioned to daily oral methy lprednisolone and discharged on this. I recommend that he see a GI-Hepatology post discharge. (5) Hyperbilirubinemia Bilirubin upon admission was 21.3 and increased to 25.4, and bili was 24.3 at discharge. (6) Depression described that he has had depression for many years and intermittently stops taking his Wellbutrin when he feels good, which then makes him depressed which then adds to his alcohol abuse. We continued his Bupropion and advised importance of staying on it. (7) Peripheral neuropathy He was on Gabapentin and Oxycodone for foot numbness and pain, which he said was from excessive alcohol intake (8) Smoking Patient smokes 1/2 to 1 pack per day. He was interested in quitting and we ordered daily Nicotine patch. (9) Hyponatremia Patient was admitted with hyponatremia sodium 127. He was given IV saline and his serum sodium increased. (10) Hypokalemia Patient was admitted with a potassium 2.7. He received K supplementation. (11) Thrombocytopenia Platelet level was as low as 86K, and improved after admission and alcohol abstinence. Plts were 203K at discharge. - ALLERGIES Allergies/Adverse Reactions: Allergies Allergy/AdvReac Type Severity Reaction Status Date / Time No Known Drug Allergies Allergy Verified 10/11/22 09:44 - MEDICATIONS Home Medications: Ambulatory Orders Medication Instructions Recorded Confirmed Gabapentin [Neurontin] 900 mg PO TID 05/18/23 05/18/23 HYDROcod/ACETAM 5/325 [[place] 5/325] 1 tab PO TID PRN 05/18/23 05/18/23 Omeprazole Magnesium 20 mg PO BIDAC 05/18/23 05/18/23 Sumatriptan Succinate [Imitrex] 50 mg PO Q2H PRN MDD 100 MG 05/18/23 05/18/23 buPROPion HCL [Wellbutrin Xl] 300 mg PO DAILY 05/18/23 05/18/23 Folic Acid/B Complex C No.17 5 mg PO DAILY #30 tablet 05/23/23 [Dexifol Caplet] Potassium Chloride [K-Dur] 20 meq PO DAILY #30 tab 05/23/23 Thiamine [Vitamin B-1] 100 mg PO DAILY #30 tab 05/23/23 chlordiazePOXIDE [Librium] 5 - 10 mg PO BID #12 cap 05/23/23 predniSONE [Deltasone] 40 mg PO DAILY 24 Days #48 tablet 05/23/23 - PHYSICAL EXAM AT DISCHARGE General Appearance: positive: No acute distress, Alert Eyes Bilateral: positive: Other (Icteric sclerae, no nystagmus) ENT: positive: No signs of dehydration Neck: positive: Nml inspection, No JVD Respiratory: positive: No respiratory distress, Breath sounds nml Cardiovascular: positive: Regular rate & rhythm, No murmur Abdomen: positive: Non-tender, No organomegaly, Nml bowel sounds, No distention Skin: positive: Warm, Dry, Other (Icteric) Extremities: positive: Non-tender, No pedal edema, Other (Decreased sens of feet) Neurologic/Psychiatric: positive: Oriented x3, CN's nml (2-12), Other (Mild ataxia when walking. Intermittently has a poor memory.) - LABS Result Diagrams: 05/22/23 05:11 05/22/23 05:11 - DIAGNOSTIC IMAGING Diagnostic Imaging Results: Final report reviewed - FOLLOW UP Follow Up: See PCP after discharge. He needs referral to Hepatology. - TIME SPENT Time Spent in Discharge (Minutes): 45
[2023-05-23 12:07] VITALS: BP 122/81; O2SAT 96
== END 2023-05-23 12:45 | disposition home or self-care (01) | DRG 897 ==
LOC: EDUNIT# → ED 21:40 → ICU 05-17 12:08 → MS2 05-21 21:30
PROVIDERS: ADMIT Specialist; ATTEND Internal Medicine
DX: F10.231 Alcohol dependence with withdrawal delirium (principal); G40.509 Epileptic seizures related to external causes, not intractable, without status epilepticus; E87.1 Hypo-osmolality and hyponatremia; K70.30 Alcoholic cirrhosis of liver without ascites; K70.40 Alcoholic hepatic failure without coma; Z78.1 Physical restraint status; F17.210 Nicotine dependence, cigarettes, uncomplicated; K70.10 Alcoholic hepatitis without ascites; F32.A Depression, unspecified; G62.1 Alcoholic polyneuropathy; E87.6 Hypokalemia; D69.6 Thrombocytopenia, unspecified; F41.9 Anxiety disorder, unspecified; E86.0 Dehydration; R27.0 Ataxia, unspecified
CPT/HCPCS: 36415; 70450; 74177; 80053; 80306; 80320; 81003; 82140; 82330; 82607; 82746; 83690; 83735; 84100; 84132; 85025; 85610; 85730; 87150; 96365; 96366; 96367; 96372; 96375; 96376; 97116; 97162; 97166; 99285; A9270; J2060; J2560; J3411; J7510; Q9967; 81001; 87086